=== PATIENT | male | born 1945 | race Caucasian/White ===

== ENCOUNTER 2016-09-14 18:03 | Inpatient (IN) | payer OTHER ==
[~2016-09-14] VITALS: Ht 177.8 cm; Wt 67.0 kg
[2016-09-14 19:07] LABS: BASO % 0.2 %; BASO ABS # 0.02 K/uL (0-0.2); COMPLETE YES; EOS % 0.5 %; HEMATOCRIT 37.5 % (42-52); IG% 0.3 %; LYMPH ABS # 1.04 K/uL (1.2-3.4); MEAN CELL VOLUME 91.9 fL (80-100); MEAN CORPUSCULAR HEMOGLOBIN 31.4 pg (25-34); MEAN CORPUSCULAR HGB CONC 34.1 g/dl (32-36); MEAN PLATELET VOLUME 8.3 fL (7.4-10.4); PLATELET COUNT 415 K/uL (130-400); RED BLOOD COUNT 4.08 M/uL (4.7-6.1); WHITE BLOOD COUNT 13.08 K/uL (4.8-10.8)
[2016-09-14 20:13] LABS: ALB/GLOB RATIO 0.8 (0.9-2); ALKALINE PHOSPHATASE 68 U/L (45-117); ALT/SGPT 18 U/L (12-78); BLOOD UREA NITROGEN 18 mg/dl (7-18); BUN/CREATININE RATIO 18.3 (10-20); CALCIUM 8.9 mg/dl (8.5-10.1); CARBON DIOXIDE 36 mmol/L (21-32); CHLORIDE 88 mmol/L (98-107); CREATININE 0.97 mg/dl (0.60-1.40); GLUCOSE 103 mg/dl (70-99); SODIUM 130 mmol/L (136-145)
--- NOTE | 2016-09-14 20:18 | DIAGNOSTIC IMAGING REPORT ---
CHEST 1 VW FRONT-NOT PORTABLE CLINICAL HISTORY: Back pain, leg numbness, trauma. COMPARISON STUDY: No previous studies for comparison. FINDINGS: The heart is borderline enlarged. There is no failure. There is no focal pulmonary consolidation. There are no pleural effusions. There is no pneumothorax.[ IMPRESSION: No active disease in the chest. Electronically signed by: Jaziel Monte M.D. 09/14/2016 8:16 PM Dictated Date/Time: 09/14/2016 8:16 PM
[2016-09-14] MEDS ORDERED: ACETAMINOPHEN 500 MG TAB PO STA (20:32)
--- NOTE | 2016-09-14 20:37 | DIAGNOSTIC IMAGING REPORT ---
CT LUMBAR SPINE WITHOUT CT DOSE: 1926.37 mGy.cm CLINICAL HISTORY: Back pain, leg weakness, urinary incontinence, history of trauma. TECHNIQUE: Helical images were acquired in transverse plane. Reformatted sagittal and coronal images were reviewed. CONTRAST: No contrast was administered COMPARISON STUDY: None. FINDINGS: L1-2 level: There is a mild circumferential disc bulge. There is no significant spinal or foraminal stenosis L2-3 level: There is a mild circumferential disc bulge. There is mild spinal stenosis. There is no significant foraminal narrowing L3-4 level: There is a mild circumferential disc bulge. There is mild spinal stenosis. There is no significant foraminal narrowing L4-5 level: There is a circumferential disc bulge. There is mild spinal stenosis. There is facet joint arthropathy. There is no significant foraminal narrowing. L5-S1 level: There is marked disc space narrowing. There are small posterior osteophytes. There is no significant spinal stenosis. There is left-sided hydronephrosis and hydroureter. The bladder is distended. There is a 4.2 cm infrarenal abdominal aortic aneurysm. There is a 2.5 cm left common iliac artery aneurysm. There is a superior endplate L1 deformity which is felt to be secondary to a Schmorl's node. IMPRESSION: 1. No acute fractures or traumatic subluxations 2. Multilevel disc bulges with multilevel mild spinal stenosis. 3. 4.2 cm infrarenal abdominal aortic aneurysm 4. Left-sided hydronephrosis and hydroureter 5. Distended urinary bladder 6. 2.5 cm left common iliac artery aneurysm Electronically signed by: Jaziel Monte M.D. 09/14/2016 8:35 PM Dictated Date/Time: 09/14/2016 8:31 PM
[2016-09-14] MEDS ORDERED: CALC-51 PO (20:41)
[2016-09-14] MEDS ORDERED: IBUP-1050 PO (20:41)
[2016-09-14] MEDS ORDERED: NAPR1TAB9 PO (20:41)
[2016-09-14] MEDS ORDERED: MAGN400T6 PO (20:41)
--- NOTE | 2016-09-14 20:49 | DIAGNOSTIC IMAGING REPORT ---
CT THORACIC SPINE WITHOUT CT DOSE: CLINICAL HISTORY: Back pain, urinary incontinence, leg weakness, history of trauma. TECHNIQUE: Helical images were acquired in the transverse plane. No intravenous contrast was administered. COMPARISON STUDY: None. FINDINGS: There is mild pulmonary septal thickening. There is area of presumed left apical peripheral scarring. There is mild left-sided hydronephrosis. There are erosive/destructive changes involving the T5-6 disc. There is bony fragmentation and loss of height involving the T5 and T6 vertebral bodies. There is retropulsion of calcific debris into the spinal canal with secondary spinal canal narrowing. There are bilateral paraspinal masses at this level. There are bilateral T6 pedicle fractures. Given history of trauma, the findings are likely secondary to posttraumatic instability although a discitis osteomyelitis could appear similar. There is a T7 compression fracture demonstrating 50% loss in height. No additional fractures are visualized. IMPRESSION: 1. T5 and T6 endplate irregularity with loss in height, bony fragmentation, bilateral T6 pedicle fractures, and associated bilateral paraspinal masses. There is also retropulsion of bony material into the spinal canal with secondary spinal canal compromise. Given history of trauma, the findings are likely secondary to posttraumatic instability with paraspinal hematomas. It should be noted that a discitis and osteomyelitis could appear similar, and clinical correlation in this regard will be necessary. 2. Subacute T7 compression fracture with 50% loss in height 3. Left-sided hydronephrosis Electronically signed by: Jaziel Monte M.D. 09/14/2016 8:48 PM Dictated Date/Time: 09/14/2016 8:37 PM
[2016-09-14 20:55] LABS: URINE APPEARANCE CLEAR (CLEAR); URINE BILIRUBIN NEG (NEG); URINE COLOR YELLOW; URINE NITRITE POS (NEG); URINE SPECIFIC GRAVITY 1.011 (1.000-1.030); UROBILINOGEN NEG (NEG); ZZUR CULT IF INDIC CLEAN CATCH YES
[2016-09-14 20:57] LABS: MANUAL MICROSCOPIC REQUIRED? NO; REVIEW REQ? NO
[2016-09-14 21:28] LABS: POTASSIUM 2.9 mmol/L (3.5-5.1)
[2016-09-14] MEDS ORDERED: DAPTOmycin IV 400 MG in SODIUM CHLORIDE 0.9% 50ML 50 ML IV STA (21:35)
[2016-09-14] MEDS ORDERED: PIPERACILLIN/TAZOBACTAM 3.375 GM/100ML D5W IV STA (21:35)
[2016-09-14] MEDS ORDERED: POTASSIUM CHLORIDE 10 MEQ TABCR PO STA (22:32)
[2016-09-14] MEDS ORDERED: MAGNESIUM OXIDE 400 MG TAB PO PRN (22:45)
[2016-09-14] MEDS ORDERED: ONDANSETRON INJ 2 MG/ML 2 ML VIAL IV PRN (22:45)
[2016-09-14] MEDS ORDERED: ACETAMINOPHEN 325 MG TAB PO PRN (22:45)
[2016-09-14] MEDS ORDERED: PIPERACILL/TAZOBAC CONSULT ACTIVE PRN (23:15)
[2016-09-14 23:40] VITALS: BP 190/89; PULSE 69; TEMP 37; O2SAT 97
--- NOTE | 2016-09-14 23:44 | EMERGENCY ROOM VISIT NOTE ---
History First contact with patient: 18:42 Chief Complaint: BACK PAIN Stated Complaint: BILATERAL LEG PARESTHESIA, THORACIC VERTEBRAL History of Present Illness The patient is a 71 year old male who presents to the Emergency Room with complaints of back pain and weakness in his legs. The patient states that he fell a few weeks ago and injured his back. He reports that he initially thought that he bruised his ribs. He states that the pain did not improve. Over the past few days he has noticed worsening of his symptoms. He has had weakness in his legs and difficulty walking. He reports some episodes of urinary incontinence. The patient states that he is otherwise healthy and does not take any medications daily. He does admit to daily marijuana use. He denies any chest pain, shortness of breath, abdominal pain, fevers or chills. He denies any urinary symptoms. Review of Systems A complete 10 point review of systems was reviewed with the patient with pertinent positives and negatives as per history of present illness. All else were negative. Past Medical/Surgical History Medical Problems: (1) Bilateral leg paresthesia (2) Thoracic vertebral fracture Social History Smoking Status: Former Smoker Current/Historical Medications Scheduled Calcium Carbonate-Vitamin D (Calcium), 1 TAB PO 2XWK Scheduled PRN Ibuprofen (Advil), 800 MG PO Q4 PRN for Pain Magnesium Oxide (Mag-Ox), 400 MG PO DAILY PRN for LEG CRAMPS Naproxen (Aleve), 220 MG PO Q4 PRN for Pain Allergies Coded Allergies: No Known Allergies (Unverified , 09/14/16) Physical Exam Vital Signs Date Time Temp Pulse Resp B/P (MAP) Pulse Ox O2 Delivery O2 Flow Rate FiO2 09/14/16 22:12 66 18 150/80 95 Room Air 09/14/16 21:11 68 18 165/104 99 Room Air 09/14/16 19:24 61 18 159/97 94 Room Air 09/14/16 19:07 64 09/14/16 18:18 36.9 73 18 167/92 93 Room Air Pain Rating (0-10): 0 Physical Exam VITALS: Vitals are noted on the nurse's note and reviewed by myself. Vital signs stable. GENERAL: This is a 71-year-old male, in no acute distress, nondiaphoretic, well- developed well-nourished. SKIN: The skin was without rashes. HEAD: Normocephalic atraumatic. NECK: Supple without nuchal rigidity. No tenderness of the cervical spine. HEART: Regular rate and rhythm without murmurs gallops or rubs. LUNGS: Clear to auscultation bilaterally without wheezes, rales or rhonchi. ABDOMEN: Soft, nontender to palpation. MUSCULOSKELETAL: There is mild tenderness over the midthoracic spine. No tenderness over the lumbar spine. Strength is 5/5 in bilateral lower extremity. Reflexes 2+ bilaterally. NEURO: Patient was alert and oriented to person place and time. Normal sensation to light and sharp touch. Medical Decision & Procedures ER Provider Diagnostic Interpretation: CHEST 1 VW FRONT-NOT PORTABLE FINDINGS: The heart is borderline enlarged. There is no failure. There is no focal pulmonary consolidation. There are no pleural effusions. There is no pneumothorax.[ IMPRESSION: No active disease in the chest. CT LUMBAR SPINE WITHOUT FINDINGS: L1-2 level: There is a mild circumferential disc bulge. There is no significant spinal or foraminal stenosis L2-3 level: There is a mild circumferential disc bulge. There is mild spinal stenosis. There is no significant foraminal narrowing L3-4 level: There is a mild circumferential disc bulge. There is mild spinal stenosis. There is no significant foraminal narrowing L4-5 level: There is a circumferential disc bulge. There is mild spinal stenosis. There is facet joint arthropathy. There is no significant foraminal narrowing. L5-S1 level: There is marked disc space narrowing. There are small posterior osteophytes. There is no significant spinal stenosis. There is left-sided hydronephrosis and hydroureter. The bladder is distended. There is a 4.2 cm infrarenal abdominal aortic aneurysm. There is a 2.5 cm left common iliac artery aneurysm. There is a superior endplate L1 deformity which is felt to be secondary to a Schmorl's node. IMPRESSION: 1. No acute fractures or traumatic subluxations 2. Multilevel disc bulges with multilevel mild spinal stenosis. 3. 4.2 cm infrarenal abdominal aortic aneurysm 4. Left-sided hydronephrosis and hydroureter 5. Distended urinary bladder 6. 2.5 cm left common iliac artery aneurysm CT THORACIC SPINE WITHOUT FINDINGS: There is mild pulmonary septal thickening. There is area of presumed left apical peripheral scarring. There is mild left-sided hydronephrosis. There are erosive/destructive changes involving the T5-6 disc. There is bony fragmentation and loss of height involving the T5 and T6 vertebral bodies. There is retropulsion of calcific debris into the spinal canal with secondary spinal canal narrowing. There are bilateral paraspinal masses at this level. There are bilateral T6 pedicle fractures. Given history of trauma, the findings are likely secondary to posttraumatic instability although a discitis osteomyelitis could appear similar. There is a T7 compression fracture demonstrating 50% loss in height. No additional fractures are visualized. IMPRESSION: 1. T5 and T6 endplate irregularity with loss in height, bony fragmentation, bilateral T6 pedicle fractures, and associated bilateral paraspinal masses. There is also retropulsion of bony material into the spinal canal with secondary spinal canal compromise. Given history of trauma, the findings are likely secondary to posttraumatic instability with paraspinal hematomas. It should be noted that a discitis and osteomyelitis could appear similar, and clinical correlation in this regard will be necessary. 2. Subacute T7 compression fracture with 50% loss in height 3. Left-sided hydronephrosis Laboratory Results Test 09/14/16 18:47 09/14/16 20:34 09/14/16 21:09 09/14/16 21:57 Total Bilirubin 0.7 mg/dl (0.2-1) Alanine Aminotransferase (ALT/SGPT) 18 U/L (12-78) Alkaline Phosphatase 68 U/L (45-117) Total Protein 7.9 gm/dl (6.4-8.2) Albumin 3.4 gm/dl (3.4-5.0) Globulin 4.5 gm/dl (2.5-4.0) Albumin/Globulin Ratio 0.8 (0.9-2) Chemistry Specimen Hemolysis Urine Color YELLOW Urine Appearance CLEAR (CLEAR) Urine pH 7.0 (4.5-7.5) Urine Specific Tripp 1.011 (1.000-1.030) Urine Protein NEG (NEG) Urine Glucose (UA) NEG (NEG) Urine Ketones NEG (NEG) Urine Occult Blood 2+ (NEG) Urine Nitrite POS (NEG) Urine Bilirubin NEG (NEG) Urine Urobilinogen NEG (NEG) Urine Leukocyte Esterase MODERATE (NEG) Urine WBC (Auto) 10-30 /hpf (0-5) Urine RBC (Auto) 10-30 /hpf (0-4) Urine Hyaline Casts (Auto) 1-5 /lpf (0-5) Urine Epithelial Cells (Auto) 5-10 /lpf (0-5) Urine Bacteria (Auto) 4+ (NEG) Aspartate Amino Transf (AST/SGOT) 17 U/L (15-37) Bedside Lactic Acid Venous 2.10 mmol/L (0.90-1.70) Medications Administered Medications (Trade) Dose Ordered Sig/Abraham Route Start Time Stop Time Status Last Admin Dose Admin Acetaminophen (Tylenol Tab) 1,000 mg NOW STAT PO 09/14/16 20:32 09/14/16 20:33 DC 09/14/16 21:10 1,000 MG Piperacillin Sod/ Tazobactam Sod (Zosyn Iv) 3.375 gm NOW STAT IV 09/14/16 21:35 09/14/16 21:39 DC 09/14/16 22:57 3.375 GM Daptomycin 400 mg/ Sodium Chloride 58 ml @ 100 mls/hr NOW STAT IV 09/14/16 21:35 09/14/16 22:09 DC 09/14/16 22:10 100 MLS/HR Potassium Chloride (Klor-Con M10) 40 meq NOW STAT PO 09/14/16 22:32 09/14/16 23:22 DC 09/15/16 01:44 40 MEQ ED Course The patient was evaluated as above. Labs were drawn and IV access was obtained. MRI of the thoracic and lumbar spine were initially ordered, but patient was not able to tolerate these. CT scans were performed and read by radiology as above. Patient was reevaluated and given 1 g Tylenol for pain. Case was discussed with Dr. Langley of orthopedic spine surgery. He recommended admitting the patient medically and he will consult tomorrow. Blood cultures were drawn. The patient was given initial doses of daptomycin and Zosyn. Case was discussed with the [facility] hospitalist, Dr. Boudreaux. They agreed to evaluate the patient for admission. Medical Decision Differential diagnosis includes fracture, contusion, spinal cord compression, discitis, cauda equina syndrome, among others. The patient is a 71-year-old male who presents today complaining of back pain after a fall several weeks ago. The patient comes in today due to increasing urinary incontinence and leg weakness. Labs did show an elevated white blood cell count of 13,000. Urinalysis was suggestive of infection, with nitrites, large leukocyte esterase, and 4+ bacteria. I initially ordered MRI of the thoracic and lumbar spine, but the patient was not able to tolerate these and CT scans were ordered instead. CT of the thoracic spine showed fractures of T5- T7 with associated retropulsion, canal compromise and what appears to be paraspinal hematomas. Orthopedic spine was consulted and agreed to evaluate the patient in the morning. He will be admitted medically. He was given Daptomycin and Zosyn for coverage of possible discitis/osteomyelitis. The patient's case was reviewed with Dr. Davison, ED attending physician, who agreed with my assessment and treatment plan. Impression Primary Impression: Thoracic vertebral fracture Additional Impression: Urinary tract infection Departure Information Referrals No Doctor, Assigned (PCP) Patient Instructions My [facility] Problem Qualifiers
[2016-09-15] MEDS: NSS + 20MEQ KCL 1000ML 1,000 ML IV SCH ×2 (00:48→09:27)
[2016-09-15 00:55] VITALS: BP 169/87
--- NOTE | 2016-09-15 01:09 | History and Physical ---
History & Physical Date & Time of Service: Sep 15, 2016 at 00:45 Chief Complaint: Bilateral Leg Paresthesia, Thoracic Vertebral Primary Care Physician: No Doctor, Assigned History of Present Illness Source: patient, family This is a 71 yo m that is presenting to us after a fall which occurred approx 4 weeks prior and has ongoing back pain. He states that four weeks ago he was walking into his house when it was dark and " I must have tripped on the stair. I remember falling forward and then waking up the next morning. I must have crawled into bed." He notes he had one beer prior to this incident. He states that his sister noticed some blood and a scratch on his notes so he believes that when he fell forward he must had hit his head but denies any N&V or headache since the fall. He states that the only thing he noticed was a dull mid back ache with an occasional "spasm" that would radiate down both legs. It was a constant 4/10 pain with the intermittent spasm. Worsened with specific movements such as bending and alleviating factors were not noted. The pain had been pretty consistent and unchanged over three weeks however over the past week he had increasing spasms and intensity of pain. He also started to notice numbness R>L in his bilat calves which was described as "semi numb". he denies any incontinence of stool or urine, sudden loss of motor function or balance concerns. 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 He was also found to be hyponatremic, hypokalemic and suffering from a UTI. He was given Zosyn and Dapto in the ED and blood cultures drawn. He does smoke marijuana on a near daily basis x 50 years. Past Medical/Surgical History Thoracic vertebrae fracture AAA Hydronephrosis Social History Smoking Status: Former Smoker Smokeless Tobacco Use: No Alcohol Use: socially Drug Use: marijuana Marital Status: single Housing status: lives alone Occupational Status: retired Allergies Coded Allergies: No Known Allergies (Unverified , 09/14/16) Home Medications Scheduled Calcium Carbonate-Vitamin D (Calcium), 1 TAB PO 2XWK Scheduled PRN Ibuprofen (Advil), 800 MG PO Q4 PRN for Pain Magnesium Oxide (Mag-Ox), 400 MG PO DAILY PRN for LEG CRAMPS Naproxen (Aleve), 220 MG PO Q4 PRN for Pain Review of Systems Constitutional: No fever Eyes: No worsening of vision ENT: No hearing loss Respiratory: No cough, No sputum, No wheezing, No shortness of breath, No dyspnea on exertion, No dyspnea at rest Cardiovascular: No chest pain Abdomen: No pain, No nausea, No vomiting, No diarrhea, No constipation Musculoskeletal: + problem reported (back pain as noted above), No joint pain, No muscle pain Genitourinary - Male: No hematuria, No dysuria, No urinary frequency, No urinary incontinence Neurologic: + numbness/tingling, No weakness, No balance problems Endocrine: No fatigue Integumentary: No rash Physical Exam Vital Signs Date Time Temp Pulse Resp B/P Pulse Ox O2 Delivery O2 Flow Rate FiO2 09/14/16 23:30 61 18 149/84 94 09/14/16 22:12 66 18 150/80 95 Room Air 09/14/16 21:11 68 18 165/104 99 Room Air 09/14/16 19:24 61 18 159/97 94 Room Air 09/14/16 19:07 64 09/14/16 18:18 36.9 73 18 167/92 93 Room Air General Appearance: no apparent distress Head: normocephalic, atraumatic Eyes: normal inspection ENT: normal ENT inspection Neck: supple Respiratory/Chest: normal breath sounds, no respiratory distress, no accessory muscle use Cardiovascular: regular rate, rhythm, no murmur Abdomen/GI: normal bowel sounds, non tender, soft Extremities/Musculoskelatal: normal inspection, no calf tenderness, no pedal edema, + pertinent finding (parasthesia R>L on inner aspect of bilat calves) Neurologic/Psych: alert, normal mood/affect, oriented x 3 Skin: normal color, warm/dry, no rash Lymphatic: no adenopathy Diagnostics Laboratory Results Results Past 24 Hours Test 09/14/16 18:47 09/14/16 20:34 09/14/16 21:09 09/14/16 21:57 Range/Units White Blood Count 13.08 4.8-10.8 K/uL Red Blood Count 4.08 4.7-6.1 M/uL Hemoglobin 12.8 14.0-18.0 g/dL Hematocrit 37.5 42-52 % Mean Corpuscular Volume 91.9 80-100 fL Mean Corpuscular Hemoglobin 31.4 25-34 pg Mean Corpuscular Hemoglobin Concent 34.1 32-36 g/dl Platelet Count 415 130-400 K/uL Mean Platelet Volume 8.3 7.4-10.4 fL Neutrophils (%) (Auto) 83.0 % Lymphocytes (%) (Auto) 8.0 % Monocytes (%) (Auto) 8.0 % Eosinophils (%) (Auto) 0.5 % Basophils (%) (Auto) 0.2 % Neutrophils # (Auto) 10.88 1.4-6.5 K/uL Lymphocytes # (Auto) 1.04 1.2-3.4 K/uL Monocytes # (Auto) 1.04 0.11-0.59 K/uL Eosinophils # (Auto) 0.06 0-0.5 K/uL Basophils # (Auto) 0.02 0-0.2 K/uL RDW Standard Deviation 42.1 36.4-46.3 fL RDW Coefficient of Variation 12.5 11.5-14.5 % Immature Granulocyte % (Auto) 0.3 % Immature Granulocyte # (Auto) 0.04 0.00-0.02 K/uL Sodium Level 130 136-145 mmol/L Potassium Level 2.9 3.5-5.1 mmol/L Chloride Level 88 98-107 mmol/L Carbon Dioxide Level 36 21-32 mmol/L Anion Gap 6.0 3-11 mmol/L Blood Urea Nitrogen 18 7-18 mg/dl Creatinine 0.97 0.60-1.40 mg/dl Est Creatinine Clear Calc Drug Dose 65.2 ml/min Estimated GFR () 90.0 Estimated GFR (Non- 77.7 BUN/Creatinine Ratio 18.3 10-20 Random Glucose 103 70-99 mg/dl Calcium Level 8.9 8.5-10.1 mg/dl Total Bilirubin 0.7 0.2-1 mg/dl Aspartate Amino Transf (AST/SGOT) 17 15-37 U/L Alanine Aminotransferase (ALT/SGPT) 18 12-78 U/L Alkaline Phosphatase 68 45-117 U/L Total Protein 7.9 6.4-8.2 gm/dl Albumin 3.4 3.4-5.0 gm/dl Globulin 4.5 2.5-4.0 gm/dl Albumin/Globulin Ratio 0.8 0.9-2 Chemistry Specimen Hemolysis Urine Color YELLOW Urine Appearance CLEAR CLEAR Urine pH 7.0 4.5-7.5 Urine Specific [place] 1.011 1.000-1.030 Urine Protein NEG NEG Urine Glucose (UA) NEG NEG Urine Ketones NEG NEG Urine Occult Blood 2+ NEG Urine Nitrite POS NEG Urine Bilirubin NEG NEG Urine Urobilinogen NEG NEG Urine Leukocyte Esterase MODERATE NEG Urine WBC (Auto) 10-30 0-5 /hpf Urine RBC (Auto) 10-30 0-4 /hpf Urine Hyaline Casts (Auto) 1-5 0-5 /lpf Urine Epithelial Cells (Auto) 5-10 0-5 /lpf Urine Bacteria (Auto) 4+ NEG Bedside Lactic Acid Venous 2.10 0.90-1.70 mmol/L Microbiology Results 09/14/16 Blood Culture, Received Pending 09/14/16 Blood Culture, Received Pending 09/14/16 Urine Culture, Received Pending Diagnostic Radiology CT THORACIC SPINE WITHOUT CT DOSE: CLINICAL HISTORY: Back pain, urinary incontinence, leg weakness, history of trauma. TECHNIQUE: Helical images were acquired in the transverse plane. No intravenous contrast was administered. COMPARISON STUDY: None. FINDINGS: There is mild pulmonary septal thickening. There is area of presumed left apical peripheral scarring. There is mild left-sided hydronephrosis. There are erosive/destructive changes involving the T5-6 disc. There is bony fragmentation and loss of height involving the T5 and T6 vertebral bodies. There is retropulsion of calcific debris into the spinal canal with secondary spinal canal narrowing. There are bilateral paraspinal masses at this level. There are bilateral T6 pedicle fractures. Given history of trauma, the findings are likely secondary to posttraumatic instability although a discitis osteomyelitis could appear similar. There is a T7 compression fracture demonstrating 50% loss in height. No additional fractures are visualized. IMPRESSION: 1. T5 and T6 endplate irregularity with loss in height, bony fragmentation, bilateral T6 pedicle fractures, and associated bilateral paraspinal masses. There is also retropulsion of bony material into the spinal canal with secondary spinal canal compromise. Given history of trauma, the findings are likely secondary to posttraumatic instability with paraspinal hematomas. It should be noted that a discitis and osteomyelitis could appear similar, and clinical correlation in this regard will be necessary. 2. Subacute T7 compression fracture with 50% loss in height 3. Left-sided hydronephrosis [~ rep ct add3]] CT LUMBAR SPINE WITHOUT CT DOSE: 1926.37 mGy.cm CLINICAL HISTORY: Back pain, leg weakness, urinary incontinence, history of trauma. TECHNIQUE: Helical images were acquired in transverse plane. Reformatted sagittal and coronal images were reviewed. CONTRAST: No contrast was administered COMPARISON STUDY: None. FINDINGS: L1-2 level: There is a mild circumferential disc bulge. There is no significant spinal or foraminal stenosis L2-3 level: There is a mild circumferential disc bulge. There is mild spinal stenosis. There is no significant foraminal narrowing L3-4 level: There is a mild circumferential disc bulge. There is mild spinal stenosis. There is no significant foraminal narrowing L4-5 level: There is a circumferential disc bulge. There is mild spinal stenosis. There is facet joint arthropathy. There is no significant foraminal narrowing. L5-S1 level: There is marked disc space narrowing. There are small posterior osteophytes. There is no significant spinal stenosis. There is left-sided hydronephrosis and hydroureter. The bladder is distended. There is a 4.2 cm infrarenal abdominal aortic aneurysm. There is a 2.5 cm left common iliac artery aneurysm. There is a superior endplate L1 deformity which is felt to be secondary to a Schmorl's node. IMPRESSION: 1. No acute fractures or traumatic subluxations 2. Multilevel disc bulges with multilevel mild spinal stenosis. 3. 4.2 cm infrarenal abdominal aortic aneurysm 4. Left-sided hydronephrosis and hydroureter 5. Distended urinary bladder 6. 2.5 cm left common iliac artery aneurysm [~ rep ct add3]] CHEST 1 VW FRONT-NOT PORTABLE CLINICAL HISTORY: Back pain, leg numbness, trauma. COMPARISON STUDY: No previous studies for comparison. FINDINGS: The heart is borderline enlarged. There is no failure. There is no focal pulmonary consolidation. There are no pleural effusions. There is no pneumothorax.[ IMPRESSION: No active disease in the chest. Impression Assessment and Plan This is a 71 yo m that is here because of worsening back pain and paraesthesias after a fall. He is found to have a T7 compression fracture of the vertebrae which may require surgery. Dr Langley is aware and will evaluate patient tomorrow. He is also found to have a AAA which will need evaluation. His hydronephrosis is concerning for obstructive pathology either from BPH which was not noted on the CT or UTI. T7 Vertebral Compression fracture; paraesthesias - patient is hemodynamically stable, med surg admission - Dr Langley will evaluation patient in am - pain control with Tylenol and morphine prn Hyponatremia -unsure if this is acute or chronic, Secondary to chronic marijuana use? - NSS with 20 kcl @ 100cc/h - Will reevaluate at 0200 and adjust rate accordingly Hypokalemia - Repleted in the ED - trend and replete accordingly Left hydronephrosis and bladder distention; obstructive pathology - BPH with UTI - white - Zosyn continued - consider addition of flomax Infrarenal AAA and Left common iliac A aneurysm - patient would benefit from an outpt follow up [facility] for AAA and outpt vascular surgery consult DVT Prophylaxis SCD in anticipation of surgery FULL CODE Level of Care Med/Surg Resuscitation Status FULL RESUSCITATION VTE Prophylaxis VTE Risk Assessment Done? Y/N: Yes Risk Level: Moderate Given or contraindicated: SCD's Social Service Consult None Apply Note Total Time: Critical Care 30 - 74 minutes Assessment and Plan Attending Addendum: I have physically seen and examined this patient, have directed their medical care, have supervised the medical residents activities, and agree with the H&P as noted above, with the following changes: NONE
[2016-09-15 03:16] LABS: CALCIUM 8.4 mg/dl (8.5-10.1)
[2016-09-15 03:26] LABS: BASO % 0.1 %; BASO ABS # 0.01 K/uL (0-0.2); COMPLETE YES; EOS % 0.2 %; HEMATOCRIT 36.5 % (42-52); IG% 0.3 %; LYMPH % 5.9 %; LYMPH ABS # 0.57 K/uL (1.2-3.4); MEAN CELL VOLUME 91.7 fL (80-100); MEAN CORPUSCULAR HEMOGLOBIN 31.7 pg (25-34); MEAN CORPUSCULAR HGB CONC 34.5 g/dl (32-36); MEAN PLATELET VOLUME 8.1 fL (7.4-10.4); MONO % 8.6 %; NEUT % 84.9 %; PLATELET COUNT 365 K/uL (130-400); RED BLOOD COUNT 3.98 M/uL (4.7-6.1); WHITE BLOOD COUNT 9.69 K/uL (4.8-10.8)
[2016-09-15 03:27] LABS: BUN/CREATININE RATIO 18.3 (10-20); CREATININE 0.9 mg/dl (0.60-1.40)
[2016-09-15] MEDS: PIPERACILL/TAZOBAC IV 3.375 GM in DEXTROSE 5% 100ML 100 ML IV SCH ×2 (04:23→12:00)
[2016-09-15] MEDS ORDERED: POTASSIUM CHLORIDE 10 MEQ TABCR PO STA (04:33)
[2016-09-15 07:20] VITALS: O2SAT 97; Ht 177.8 cm; Wt 67.0 kg
[2016-09-15 07:28] VITALS: BP 197/98; PULSE 70; TEMP 36.7; O2SAT 96
[2016-09-15 07:39] LABS: BUN/CREATININE RATIO 14.8 (10-20); CALCIUM 8.2 mg/dl (8.5-10.1); CREATININE 0.89 mg/dl (0.60-1.40); PHOSPHORUS 2.4 mg/dl (2.5-4.9)
[2016-09-15 08:09] VITALS: BP 180/97
[2016-09-15] MEDS: MoRPHine SULFATE 4 MG/ML 1 ML CARP\\VIAL IV PRN ×2 (09:25→13:16)
--- NOTE | 2016-09-15 11:30 | ORTHOPEDIC CONSULTATION ---
DATE OF CONSULTATION: 09/15/2016 DATE OF CONSULTATION: 09/15/2016. CHIEF COMPLAINT: Back pain followed closely by lower extremity difficulty. HISTORY OF PRESENT ILLNESS: Hamzah is 71, he fell 4 weeks ago, actually injured his head walking to his small cabin near his sister. He thought he tripped on the stairs, didn't think much of it. He did crawl into his bed. He had no significant problems prior. His sister did notice had he had some bleeding but did not need Emergency Room care at that time. Over the last 3-4 weeks he has gotten increasing pain with his spine, increasing lower extremity difficulty. He presented to the Emergency Room because he was not be improving, noticing numbness, tingling, weakness. He also had increasing urinary incontinence and urinary issues over and above his prior prostate issues. PAST MEDICAL HISTORY: Include hydronephrosis. No hypertension. SOCIAL HISTORY: Nonsmoker, nonalcohol user, marijuana user for 50 years. ALLERGIES: None known. MEDICATIONS: Calcium carbonate, vitamin D. REVIEW OF SYSTEMS: He denies any blurred vision, double vision, tinnitus or vertigo. Denies any chest pain, shortness of breath. No asthma, wheezing. No nausea, vomiting. He does have some urinary incontinence and the Gonzales catheter was placed. OBJECTIVE: VITAL SIGNS: 140/80 blood pressure, pulse of 68, respirations 18. GENERAL APPEARANCE: Stable. No terrible distress. HEAD, EYES, EARS, NOSE, AND THROAT: Pupils react to light and accommodation. Ear, nose and throat negative. NECK: Supple. LUNGS: Respiratory rate per H&P, normal breath sounds. CARDIAC: Normal rate rhythm, no murmur, no ectopy. ABDOMEN: Soft, nontender. EXTREMITIES: As far as his extremities are concerned they look normal in appearance. There is no significant edema. He has significant paresthesias, numbness and tingling varied in anatomic distribution. He has 3/5 strength with quads, 3/4 with dorsiflexion. Iliopsoas 3/5 too. He cannot even resist gravity. IMAGES: Reviewed in detail. He has a 3 column injury of the thoracic spine at T5 on T6, he has fracture down the anterior column. It is distracted and broken through the middle column with retropulsion of bone. He also has some tension on the posterior ligamentous structures at thoracic 4, 5 and 6. It is a true 3 column injury. IMPRESSION: Includes a delightful gentleman, 71, with a 3 column thoracic spine injury, retropulsion spinal canal, spinal canal narrowing, fracture of the bilateral pedicles at T6 with spinal cord compression. Cross sections also demonstrate spinal cord compression. DISPOSITION: I have ordered him a back brace for support and that is not going to be sufficient. I think he needs a higher level of acuity. He will need a fairly significant surgery with pedicle screws or hooks going up into the upper thoracic spine down into the lower thoracic spine. He actually may need some anterior work done as well coming from inside the rib cage. I feel that this is more than we can handle here at [facility]. We do not have the expertise as well. I recommend him being transferred to a higher level of care locally to be either [facility]. I recommend he stay at bed rest. I recommend a Gonzales catheter in place. If he gets down to [place] or [facility] with some sedation, he may be best off with an MRI scan as well.
[2016-09-15 15:18] VITALS: BP 139/90; PULSE 82; TEMP 36.9; O2SAT 96
--- NOTE | 2016-09-15 18:21 | Discharge Summary ---
Discharge Summary Date of Service Sep 15, 2016. (Graham Macedo MD) Discharge Summary Admission Date: September 14, 2016 at 22:37 Discharge Date: Sep 15, 2016 Discharge Disposition: Acute care facility Principal Diagnosis: Thoracic Vertebrae Fracture Consultations: Orthopedic Surgery (Graham Macedo MD) Discharge Exam patient comfortable in bed and in no acute distress Is complaining of lower leg cramps and numbness and tingling Does not want to lay flat in bed and wants to sit at the side of bed despite orders from nurse to stay in bed with brace Review of Systems: Constitutional: No fever, No chills, No sweats Respiratory: No cough, No sputum, No wheezing Cardiovascular: No chest pain, No edema, No palpitations Musculoskeletal: + problem reported (back pain) Genitourinary - Male: No dysuria, No urinary frequency, No urinary urgency, No urinary incontinence Neurologic: + numbness/tingling, No paralysis, No weakness Hematologic / Lymphatic: No abnormal bleeding/bruising, No clotting problems (Graham Macedo MD) 71 y/o M admitted overnight for having had mid back pain for 4 wks after a fall and now having weakness in legs leading to recurrent recent falls in a week. Noted to have fracture in thoracic spine on CT scan. Review of Systems: Constitutional: No fever Respiratory: No shortness of breath Cardiovascular: No chest pain Genitourinary - Male: No hematuria Neurologic: + weakness (both LE), + balance problems Physical Exam: General Appearance: no apparent distress Respiratory/Chest: lungs clear, no respiratory distress Cardiovascular: regular rate, rhythm Abdomen / GI: normal bowel sounds, non tender, soft Neurologic/Psychiatric: alert, oriented x 3, + pertinent finding (Both LE with weakness in proximal muscles. Able to plantar flex at ankle. Unable to stand. UE strength intact. ) Skin: warm/dry (Joie Brooks M.D.) Hospital Course Hamzah is 71, he fell 4 weeks ago, actually injured his head walking to his small cabin near his sister. He thought he tripped on the stairs, didn't think much of it. He did crawl into his bed. Hamzah is a 71 year old male that fell 4 weeks ago when he was walking to his cab. He crawled into his bed. He sister did not that he had some bleeding but did not bring him to the ED. Over the last several weeks he has had worsening back pain with increasing lower extremity cramping and numbness. In the ED he was also having worsening urinary incontinence. Imaging of his thoracic spine with CT showed a 3 column injury at T5-T6 down the anterior column. It is distracted and broken through the middle column with retropulsion of bone. He also has tension on the posterior ligamentous structures at thoracic 4,5 and 6. It was decided by the orthopedic team to transfer the patient to [place] for surgery that cannot be done at [facility]. Total Time Spent: Less than 30 minutes This includes examination of the patient, discharge planning, medication reconciliation, and communication with other providers. (Graham Macedo MD) I have reviewed the medical record and performed a history and physical examination of this patient today. I have discussed the case with Dr. Macedo. The above note reflects my findings, conclusions, and recommendations Thoracic spine fracture after a fall with LE weakness with urinary incontinence and left hydronephrosis - On staff spine surgery recommends tertiary care referral. Called [facility] and transferred patient to Dr. Melissa service. AAA and iliac artery aneurysm - Will need outpatient follow up after discharge from [facility]. Total Time Spent: Greater than 30 minutes (40) (Joie Brooks M.D.) Discharge Instructions Please refer to the electronic Patient Visit Report (Discharge Instructions) for additional information. (Graham Macedo MD) Additional Copies To Abraham Mackenzie M.D.
[2016-09-16] MEDS ORDERED: CALCIUM 600MG + VIT D 400 IU TAB PO SCH (09:00)
== END 2016-09-15 20:35 | disposition short-term general hospital (02) | DRG 52 ==
LOC: ENRESERVDT → ENRESERVTM → C.EDB 18:07 → C.MSN 22:37
PROVIDERS: ADMIT Hospitalist; ATTEND Family Medicine
DX: S34.102A Unspecified injury to L2 level of lumbar spinal cord, initial encounter (principal); S22.058A Other fracture of T5-T6 vertebra, initial encounter for closed fracture; N13.30 Unspecified hydronephrosis; N39.0 Urinary tract infection, site not specified; E87.1 Hypo-osmolality and hyponatremia; Z87.891 Personal history of nicotine dependence; F12.10 Cannabis abuse, uncomplicated; I71.4 Abdominal aortic aneurysm, without rupture; N40.1 Benign prostatic hyperplasia with lower urinary tract symptoms; N39.498 Other specified urinary incontinence; Y92.018 Other place in single-family (private) house as the place of occurrence of the external cause; W10.8XXA Fall (on) (from) other stairs and steps, initial encounter; Y93.01 Activity, walking, marching and hiking

== ENCOUNTER 2016-09-29 19:29 | Emergency (ER) | payer OTHER ==
[~2016-09-29] VITALS: Ht 177.8 cm; Wt 64.0 kg
[~2016-09-29 19:29] MED LIST: CALC-51 PO; IBUP-1050 PO; MAGN400T6 PO; NAPR1TAB9 PO
[2016-09-29 19:38] VITALS: TEMP 36.7; Ht 177.8 cm; Wt 64.0 kg
[2016-09-29] MEDS ORDERED: ACET325T96 PO (20:51)
[2016-09-29] MEDS ORDERED: ALTEPLASE, RECOMBINANT 1 MG/ML 2 ML VIAL IV STA ×2 (21:53)
--- NOTE | 2016-09-30 00:49 | EMERGENCY ROOM VISIT NOTE ---
History First contact with patient: 20:50 Chief Complaint: PICC LINE CLOTTED Stated Complaint: PIC R ARM CLOGGED, SENT BY [facility] History of Present Illness The patient is a 71 year old male who presents to the Emergency Room via private vehicle with complaints of "pick" unclotted, sent by [facility]". The patient is currently undergoing management at [facility] where he receives antibiotics through the PICC line in his right arm. This is a double-lumen PICC line. The patient states that he has been told the pick line has been difficult to provide medication through and drop blood through for the past 2 weeks. He states that today the staff was unable to utilize the catheter as it was occluded. He was sent here for management. He denies any fevers, chills, arm pain. Review of Systems A complete 6-point Review of Systems was discussed with the patient, with pertinent positives and negatives listed in the History of Present Illness. All remaining Review of Systems questions can be considered negative unless otherwise specified. Past Medical/Surgical History Medical Problems: (1) Bilateral leg paresthesia (2) Thoracic vertebral fracture Family History No pertinent family history at this time. Social History Smoking Status: Never Smoker Occupation Status: retired Current/Historical Medications Scheduled Calcium Carbonate-Vitamin D (Calcium), 1 TAB PO DAILY Scheduled PRN Acetaminophen Tab (Tylenol), 325 MG PO DAILY PRN for Pain Ibuprofen (Advil), 800 MG PO Q4 PRN for Pain Magnesium Oxide (Mag-Ox), 400 MG PO DAILY PRN for LEG CRAMPS Naproxen (Aleve), 220 MG PO Q4 PRN for Pain Allergies Coded Allergies: No Known Allergies (Unverified , 09/29/16) Physical Exam Vital Signs Date Time Temp Pulse Resp B/P (MAP) Pulse Ox O2 Delivery O2 Flow Rate FiO2 09/30/16 01:00 89 16 141/88 98 09/29/16 23:07 92 16 161/98 97 Room Air 09/29/16 19:38 36.7 107 18 150/89 95 Room Air Physical Exam VITAL SIGNS - Vital signs and nursing notes were reviewed. Patient is afebrile , hypertensive at 150/89, tachycardic and read 107 bpm, and is saturating well on room air 95%. GENERAL -71-year-old male appearing his stated age who is in no acute distress. Communicates well with provider and answers questions appropriately. SKIN - Without rashes. There is no erythema around the insertion site of the right catheter at the right distal brachial region. Minimal bruising noted at this region. Medical Decision & Procedures Medications Administered Medications (Trade) Dose Ordered Sig/Abraham Route Start Time Stop Time Status Last Admin Dose Admin Alteplase, Recombinant (Activase Cathflo) 2 mg ONE STAT IV 09/29/16 21:53 09/29/16 21:55 DC 09/29/16 22:13 2 MG Alteplase, Recombinant (Activase Cathflo) 2 mg ONE STAT IV 09/29/16 21:53 09/29/16 21:55 DC 09/29/16 22:15 2 MG Medical Decision Patient was seen and evaluated as above. He was evaluated by the PICC line team /IV team. It was recommended that we utilize Cathflo 2 for the double lumen catheter. This was ordered as per request, and was administered via the IV team. This was then allowed to sit within the catheter for a period of time, and was removed by the nurse and the line was flushed. Patient tolerated this well. The catheter is now functional. Patient is to be returned to [facility] where he may resume medical management. Impression Primary Impression: Occlusion of peripherally inserted central catheter (PICC) line Additional Impression: PIC line (peripherally inserted central catheter) flush Departure Information Dispostion Home / Self-Care Condition GOOD Referrals Abraham Mackenzie M.D. (PCP) Patient Instructions My [facility] Additional Instructions You were seen in the emergency Department for an occluded catheter. We have been able to successfully reopened the catheter. This is now may be used as directed. Please return to the emergency department with any new/concerning symptoms. Thank you for your time and have a good night. Problem Qualifiers
[2016-09-30 01:00] VITALS: BP 141/88; PULSE 89; O2SAT 98
== END 2016-09-30 01:00 | disposition home or self-care (01) ==
LOC: C.EDB 19:31 → C.EDC 09-30 01:00
DX: T82.868A Thrombosis due to vascular prosthetic devices, implants and grafts, initial encounter (principal); Y84.8 Other medical procedures as the cause of abnormal reaction of the patient, or of later complication, without mention of misadventure at the time of the procedure

== ENCOUNTER 2022-09-28 10:51 | Inpatient (IN) ==
[2022-09-28] MEDS: SODIUM CHLORIDE 0.9% 1000ML 1,000 ML IV SCH ×2 (11:00→11:53)
[2022-09-28] MEDS ORDERED: CEFEPIME 2,000 MG/20 ML VIAL IV STA (11:14)
[2022-09-28] MEDS ORDERED: LORazepam 2 MG/1 ML VIAL IV STA (11:45)
--- NOTE | 2022-09-28 11:53 | Emergency Department Note ---
Impression & Plan Sepsis, Hyperkalemia, Elevated INR, Anemia, Acute metabolic encephalopathy, Hyperammonemia, Rhabdomyolysis, Aspiration pneumonia, High anion gap metabolic acidosis, Acute renal failure, Hypothermia, Severe protein-calorie malnutrition, Acute urinary retention, Bilateral hydronephrosis, Medical non-compliance ED Provider Note NAME: CORNEL SHIELDS AGE: 77 SEX: M ARRIVES VIA: Ambulance INFORMANT: Patient ED PROVIDER(S): Ramírez Calderon MD CHIEF COMPLAINT: Altered mental status, hypothermic PLAN: Disposition: Admit MEDICAL DECISION MAKING: The patient is a 77-year-old gentleman with a past medical history of medical noncompliance, history of seizure disorder, noncompliant with medications, history of hypertension, noncompliant with medications who presents to the emergency department via EMS for altered mental status of unclear duration. The patient was recently seen by his [facility] primary care office several weeks ago and was diagnosed with a urinary tract infection. Per EMS report family was able to confirm his medications by opening unopened mail order medication packages consistent with his prior history of medical noncompliance. The [facility] department also did receive a call from [facility] ([place], ) that they received a call from the patient's ex- (Heather Shields, ) prior to calling 911 attempting to establish care with the hospice agency for their father. The patient arrives to emergency department critically ill-appearing, hypothermic with rectal temperature of 29.6, hypotensive in the 80s/50s with O2 saturation 97% on room air. The patient is awake with eyes open with purposeful movements will not follow commands in will only moan. He is moving all extremities equally. He appears pale, cachectic and unkempt. He has dry cracked mucous membranes and skin tenting. He has moderately distended abdomen/suprapubic region and upon White catheter placement by nursing 3200 cc of urine output was obtained. Sepsis treatment initiated with warmed IV fluid resuscitation with normal saline initially, bear hugger/warming blanket, empiric antibiotics with cefepime. EKG demonstrates sinus bradycardia with nonspecific intraventricular conduction block with rate of [address] elevation depression. Chest x-ray negative for acute cardiopulmonary process. WBC 3.9k nonspecific with lymphopenia of 0.11 but normal neutrophils and no left shift. H/H 6.2/18.6 decreased from January 04-. Platelets are nearly low at 73 K. Chemistry demonstrates high anion gap metabolic acidosis with anion gap of 30 and bicarbonate of 5 which correlates to a pH on VBG which was <7.0. Acute renal failure is noted with creatinine of 13 and BUN of 256. Potassium 7.7 which correlates to new conduction delay on EKG and so treatment with IV calcium gluconate x3 g and 10 units of regular insulin with 2 A of D50 were administered. The patient's lactic acid was 5.5 downtrending to 4.7 f ollowing IV fluid administration. LFTs with AST 61, nonspecific and LFTs otherwise unremarkable. INR was elevated at 1.7 and suspected to reflect failure to thrive/malnutrition and likely vitamin K deficiency. 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 CPK 1700, high- sensitivity troponin 176, nonspecific and lipase 4300 all consistent with multisystem organ failure in this critically ill patient. Procalcitonin 0.64. UA with WBCs but no bacteria but in the setting of recent antibiotics for UTI. Respiratory viral panel/bio fire was negative. CT of the head was negative for acute abnormalities. CT of the chest consistent with suspicion for aspiration pneumonia. CT of the abdomen pelvis demonstrates bilateral hy droureteronephrosis following bladder decompression with White catheter. Additional note is made of distended loops of small bowel which is most likely consistent with ileus and clinical context, possibly related to mass effect from distended bladder prior to white catheter placement. 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 As the patient's goals of care had yet to be fully confirmed with appropriate family the patient's resuscitation continued and no type and cross for PRBCs ordered to be warmed and administered given the patient's hypothermia and anemia with multisystem organ failure. Case was d/w Dr. Lazo, [facility] hospitalist who will evaluate the patient for admission. Of note, patient family ultimately did arrive to the bedside and discussed goals of care further with Dr. Lazo and so patient was confirmed to be DNR/DNI and to have limitations in his care preferring to focus on comfort though they did agree with blood transfusion. Further management per admitting team. Triage Nursing notes reviewed and agree them. Prior/outside medical records reviewed Vital Signs: reviewed Differential diagnosis: Infection, hypoglycemia, electrolyte abnormalities, overdose, toxicologic, cardiac sources, intracerebral event, neurologic, trauma, as well as other pathologies. ER treatment provided: See below. Diagnostics interpreted by me: ECG: Sinus bradycardia, first-degree AV block, 46 bpm, nonspecific intraventricular conduction block, no overt ST elevation or depression, QTc 516, QRS 178. Cardiac Monitoring: An order for continuous cardiac monitoring was placed and demonstrated sinus bradycardia, 46 bpm, nonspecific intraventricular conduction block. Laboratory studies: See below Imaging studies: See below Consultation(s): Case was d/w Dr. Lazo, [facility] hospitalist who will evaluate the patient for admission. HPI: The patient is a 77-year-old gentleman with a past medical history of m edical noncompliance, history of seizure disorder, noncompliant with medications, history of hypertension, noncompliant with medications who presents to the emergency department via EMS for altered mental status of unclear duration. The patient was recently seen by his [facility] primary care office several weeks ago and was diagnosed with a urinary tract infection. Per EMS report family was able to confirm his medications by opening unopened mail order medication packages consistent with his prior history of medical noncompliance. The emergency department also did receive a call from [facility] ([place], ) that they received a call from the patient's ex- (Heather Shields, ) prior to calling 911 attempting to establish care with the hospice agency for their father. ROS: See above HPI for pertinent positives & negatives. A total of 10 systems reviewed and were otherwise negative. VITALS:See Below PHYSICAL EXAMINATION: GENERAL: Awake, critically ill-appearing, cachectic HENT: Normocephalic, atraumatic. Oropharynx dry-cracked mucous membranes. EYES: Normal conjunctiva. Sclera non-icteric. NECK: Supple. No nuchal rigidity. FROM. No JVD. RESPIRATORY: Diminished at the bases and otherwise clear to auscultation. CARDIAC: Bradycardic rate, normal rhythm. Extremities cool and clammy with delayed capillary refill. Pulses are equal. ABDOMEN: Moderate lower abdominal/suprapubic distention. No rebound or guarding. No masses. MUSCULOSKELETAL: Chest examination reveals no tenderness. The back is symmetrical on inspection without obvious abnormality. There is no CVA tenderness to palpation. No joint edema. LOWER EXTREMITIES: Calves are equal size bilaterally and non-tender. No edema. No discoloration. NEURO: GCS 11: Awake, eyes open, moans, moves all extremities equally with purposeful movements but does not follow commands. SKIN: Moderate pallor. Skin tenting. Cool to touch. No rash or jaundice noted. ED COURSE: Critical Care: I have personally spent greater than 135 minutes of critical care time in the direct management of this patient. This includes bedside care, interpretation of diagnostic studies, and testing, discussion with consultants, patient, and family members, and other required patient management activities. This 135 haim brandon is in excess of all separately billable procedures. Ramírez Calderon MD Past Med/Surg History Medical History Hypertension Medical non-compliance Seizure disorder Social History Smoking Status: Former smoker Hx Alcohol Use: No Hx Substance Use: Yes Last Used Substance: Days (ago) Preferred Language: Macedonian Communication Ability: Impaired Director Learning Services Required: No Current Living Situation: Family Feels Safe at Home: Yes Safety Concerns: Feels Safe At This Time Assistive Devices: Oxygen - Continuous Allergies Allergies Allergy/AdvReac Type Severity Reaction Status Date / Time No Known Allergies Allergy Unverified 04/27/18 13:48 Home Meds Home Medications Medication Instructions Recorded Confirmed amlodipine 5 mg-olmesartan 20 mg 1 tab PO DAILY 09/28/22 09/28/22 tablet Results & Data (ED) Vital Signs Vital Signs - 24 hr 09/28/22 10:52 09/28/22 11:51 09/28/22 12:15 Temperature 29.6 C L Temperature Source Rectal Pulse Rate 39 L 57 L 63 Pulse Rate from SpO2 Sensor Respiratory Rate 12 Respiratory Effort / Characteristics Spontaneous Respiratory Pattern Regular Blood Pressure 87/56 L Blood Pressure Mean 66 Blood Pressure Position Semi-fowlers Pulse Oximetry 97 100 Oxygen Delivery Method Room Air Room Air Sepsis Recent Fever Within 48 Hours No Sepsis New/Unexplained Change in Mental Status Yes Sepsis Action Taken by Nursing Physician Notified 09/28/22 11:04 09/28/22 11:10 09/28/22 11:12 Temperature Temperature Source Pulse Rate 48 L 48 L 51 L Pulse Rate from SpO2 Sensor Respiratory Rate 20 17 17 Respiratory Effort / Characteristics Respiratory Pattern Blood Pressure Blood Pressure Mean Blood Pressure Position Pulse Oximetry Oxygen Delivery Method Sepsis Recent Fever Within 48 Hours Sepsis New/Unexplained Change in Mental Status Sepsis Action Taken by Nursing 09/28/22 11:12 09/28/22 11:20 09/28/22 11:27 Temperature Temperature Source Pulse Rate 47 L Pulse Rate from SpO2 Sensor Respiratory Rate 19 Respiratory Effort / Characteristics Respiratory Pattern Blood Pressure 87/57 L 132/58 L Blood Pressure Mean 66 82 Blood Pressure Position Pulse Oximetry 98 Oxygen Delivery Method Sepsis Recent Fever Within 48 Hours Sepsis New/Unexplained Change in Mental Status Sepsis Action Taken by Nursing 09/28/22 11:27 09/28/22 11:30 09/28/22 11:39 Temperature Temperature Source Pulse Rate 53 L 48 L Pulse Rate from SpO2 Sensor 49 L 48 L Respiratory Rate 18 17 Respiratory Effort / Characteristics Respiratory Pattern Blood Pressure 118/71 Blood Pressure Mean 93 Blood Pressure Position Pulse Oximetry 100 92 Oxygen Delivery Method Sepsis Recent Fever Within 48 Hours Sepsis New/Unexplained Change in Mental Status Sepsis Action Taken by Nursing 09/28/22 11:39 09/28/22 11:40 09/28/22 11:45 Temperature Temperature Source Pulse Rate 44 L 55 L Pulse Rate from SpO2 Sensor 51 L 54 L Respiratory Rate 20 18 Respiratory Effort / Characteristics Respiratory Pattern Blood Pressure 122/63 Blood Pressure Mean 86 Blood Pressure Position Pulse Oximetry 100 96 Oxygen Delivery Method Sepsis Recent Fever Within 48 Hours Sepsis New/Unexplained Change in Mental Status Sepsis Action Taken by Nursing 09/28/22 11:45 09/28/22 11:50 09/28/22 12:00 Temperature Temperature Source Pulse Rate 60 46 L Pulse Rate from SpO2 Sensor 54 L 52 L Respiratory Rate 17 18 Respiratory Effort / Characteristics Respiratory Pattern Blood Pressure 123/55 L Blood Pressure Mean 85 Blood Pressure Position Pulse Oximetry 99 99 Oxygen Delivery Method Sepsis Recent Fever Within 48 Hours Sepsis New/Unexplained Change in Mental Status Sepsis Action Taken by Nursing 09/28/22 12:00 09/28/22 12:10 09/28/22 12:15 Temperature Temperature Source Pulse Rate 55 L 70 Pulse Rate from SpO2 Sensor 55 L 58 L Respiratory Rate 20 18 Respiratory Effort / Characteristics Respiratory Pattern Blood Pressure 135/68 Blood Pressure Mean 85 Blood Pressure Position Pulse Oximetry 100 99 Oxygen Delivery Method Sepsis Recent Fever Within 48 Hours Sepsis New/Unexplained Change in Mental Status Sepsis Action Taken by Nursing 09/28/22 12:15 09/28/22 12:20 Temperature Temperature Source Pulse Rate 60 53 L Pulse Rate from SpO2 Sensor 52 L 55 L Respiratory Rate 21 23 Respiratory Effort / Characteristics Respiratory Pattern Blood Pressure Blood Pressure Mean Blood Pressure Position Pulse Oximetry 100 100 Oxygen Delivery Method Sepsis Recent Fever Within 48 Hours Sepsis New/Unexplained Change in Mental Status Sepsis Action Taken by Nursing Laboratory Data Attestation: I reviewed the patient's lab results. 09/28/22 11:20 09/28/22 11:20 Lab Results 09/28/22 09/28/22 09/28/22 Range/Units 11:20 11:20 11:20 WBC 4.43 L (4.8-10.8) K/ul RBC 1.91 L (4.70-6.10) M/uL Hgb 6.2 L* (14.0-18.0) g/dl Hct 18.6 L* (42.0-52.0) % MCV 97.4 (80.0-100.0) fL MCH 32.5 (25.0-34.0) pg MCHC 33.3 (32.0-36.0) g/dL RDW Std Deviation 46.8 H (36.4-46.3) fL RDW Coeff of Clarence 13.3 (11.5-14.5) % Plt Count 73 L (130-400) K/uL MPV 10.2 (9.4-12.4) fL Immature Gran % (Auto) 0.7 % Neut % (Auto) 93.2 % Lymph % (Auto) 2.5 % Curry % (Auto) 3.6 % Eos % (Auto) 0.0 % Baso % (Auto) 0.0 % Reticulocyte % (Auto) (0.5-2.0) % Neut # (Auto) 4.13 (1.40-6.50) K/uL Lymph # (Auto) 0.11 L (1.2-3.4) K/uL Curry # (Auto) 0.16 (0.11-0.59) K/uL Eos # (Auto) 0.00 (0-0.50) K/uL Baso # (Auto) 0.00 (0-0.2) K/uL Reticulocyte # (0.02-0.10) 10^6/uL Immature Gran # (Auto) 0.03 (0.01-0.20) K/uL Absolute Nucleated RBC 0.05 (0-0.12) K/uL Nucleated RBC % (auto) 1.1 % Polychromasia 1+ Echinocytes 1+ PT (9.0-12.0) Seconds INR (0.9-1.1) VBG pH (7.36-7.41) VBG pCO2 (38-50) mmHg VBG pO2 mmHg VBG HCO3 mmol/L VBG O2 Saturation % VBG Base Excess mEq/L Sodium 138 (136-145) mmol/L Potassium 7.7 H* (3.5-5.1) mmol/L Chloride 103 (98-107) mmol/L Carbon Dioxide 5 L* (21-32) mmol/L Anion Gap 30 H (3-11) BUN 256 H (6-23) mg/dl Creatinine 13.09 H* (0.6-1.4) mg/dl Est Cr Clr Drug Dosing Not Reportable Est GFR ( Amer) 3.7 ml/min Est GFR (Non-Af Amer) 3.2 ml/min BUN/Creatinine Ratio 19.8 (10-20) Glucose 76 (70-99(Fasting)) mg/dl POC Glucose (70-99) mg/dl Lactate 5.5 H* (0.4-2.0) mmol/L Calcium 8.1 L (8.6-10.3) mg/dl Phosphorus (2.5-4.9) mg/dl Magnesium 3.1 H (1.7-2.4) mg/dl Iron (35-175) mcg/dl TIBC (250-450) mcg/dl Unsaturated IBC (155-355) mcg/dl Transferrin % Sat (20-50) % Ferritin (8-388) ng/ml Total Bilirubin 0.4 (0.2-1.0) mg/dl Direct Bilirubin 0.1 (0-0.2) mg/dl AST 61 H (13-39) U/L ALT 19 (7-52) U/L Alkaline Phosphatase 41 (34-104) U/L Ammonia (18-72) umol/L Total Creatine Kinase 1708 H (30-223) U/L Troponin I High Sens 176.7 H* (0-20) pg/ml Total Protein 6.2 (6.0-8.3) gm/dl Albumin 3.8 (3.4-5.0) gm/dl Lipase 4392 H (11-82) U/L Vitamin B12 (180-914) pg/ml Folate (>5.38) ng/ml Procalcitonin (0-0.5) ng/ml TSH (0.300-4.500) uIu/ml Random Cortisol mcg/dl Urine Color Urine Appearance (Clear) Urine pH (4.5-7.5) Ur Specific [place] (1.000-1.030) Urine Protein (Negative) Urine Glucose (UA) (Negative) Urine Ketones (Negative) Urine Blood (Negative) Urine Nitrite (Negative) Urine Bilirubin (Negative) Urine Urobilinogen (Negative) Ur Leukocyte Esterase (Negative) Urine WBC (Auto) (0-5) /hpf Urine RBC (Auto) (0-4) /hpf U Hyaline Cast (Auto) (0-5) /lpf U Epithel Cells (Auto) (0-5) /lpf Urine Bacteria (Auto) (Negative) Urine Yeast Salicylates (3.0-30) mg/dl Urine Opiates Screen (Neg) Ur Methadone, Qual (Neg) Acetaminophen (10-30) ug/ml Urine Barbiturates (Neg) Ur Phencyclidine (PCP) (Neg) U Amphetamin/Meth Scrn (Neg) MDMA (Ecstasy) Screen (Neg) U Benzodiazepines Scrn (Neg) Ur Cocaine Metabolite (Neg) U Marijuana (THC) Screen (Neg) Ethyl Alcohol mg/dL (<10.0) mg/dl Adenovirus (PCR) (NotDetected) B. pertussis DNA (PCR) (NotDetected) B.parapertussis DNA PCR (NotDetected) C. pneumoniae DNA (PCR) (NotDetected) Coronavirus OC43 (PCR) (NotDetected) Coronavirus HKU1 (PCR) (NotDetected) Coronavirus 229E (PCR) (NotDetected) SARS-CoV-2 (PCR) (NotDetected) Coronavirus NL63 (PCR) (NotDetected) Human Metapneumovir PCR (NotDetected) Influenza Type A (PCR) (NotDetected) Influenza Type B (PCR) (NotDetected) M. pneumoniae (PCR) (NotDetected) Parainfluenza 1 (PCR) (NotDetected) Parainfluenza 2 (PCR) (NotDetected) Parainfluenza 3 (PCR) (NotDetected) Parainfluenza 4 (PCR) (NotDetected) RSV (PCR) (NotDetected) Entero/Rhino (PCR) (NotDetected) Blood Type Blood Type Recheck Antibody Screen Crossmatch 09/28/22 09/28/22 09/28/22 Range/Units 11:20 11:20 11:20 WBC (4.8-10.8) K/ul RBC (4.70-6.10) M/uL Hgb (14.0-18.0) g/dl Hct (42.0-52.0) % MCV (80.0-100.0) fL MCH (25.0-34.0) pg MCHC (32.0-36.0) g/dL RDW Std Deviation (36.4-46.3) fL RDW Coeff of Clarence (11.5-14.5) % Plt Count (130-400) K/uL MPV (9.4-12.4) fL Immature Gran % (Auto) % Neut % (Auto) % Lymph % (Auto) % Curry % (Auto) % Eos % (Auto) % Baso % (Auto) % Reticulocyte % (Auto) (0.5-2.0) % Neut # (Auto) (1.40-6.50) K/uL Lymph # (Auto) (1.2-3.4) K/uL Curry # (Auto) (0.11-0.59) K/uL Eos # (Auto) (0-0.50) K/uL Baso # (Auto) (0-0.2) K/uL Reticulocyte # (0.02-0.10) 10^6/uL Immature Gran # (Auto) (0.01-0.20) K/uL Absolute Nucleated RBC (0-0.12) K/uL Nucleated RBC % (auto) % Polychromasia Echinocytes PT 18.5 H (9.0-12.0) Seconds INR 1.7 H (0.9-1.1) VBG pH (7.36-7.41) VBG pCO2 (38-50) mmHg VBG pO2 mmHg VBG HCO3 mmol/L VBG O2 Saturation % VBG Base Excess mEq/L Sodium (136-145) mmol/L Potassium (3.5-5.1) mmol/L Chloride (98-107) mmol/L Carbon Dioxide (21-32) mmol/L Anion Gap (3-11) BUN (6-23) mg/dl Creatinine (0.6-1.4) mg/dl Est Cr Clr Drug Dosing Est GFR ( Amer) ml/min Est GFR (Non-Af Amer) ml/min BUN/Creatinine Ratio (10-20) Glucose (70-99(Fasting)) mg/dl POC Glucose (70-99) mg/dl Lactate (0.4-2.0) mmol/L Calcium (8.6-10.3) mg/dl Phosphorus (2.5-4.9) mg/dl Magnesium (1.7-2.4) mg/dl Iron (35-175) mcg/dl TIBC (250-450) mcg/dl Unsaturated IBC (155-355) mcg/dl Transferrin % Sat (20-50) % Ferritin (8-388) ng/ml Total Bilirubin (0.2-1.0) mg/dl Direct Bilirubin Cancelled (0-0.2) mg/dl AST (13-39) U/L ALT (7-52) U/L Alkaline Phosphatase (34-104) U/L Ammonia (18-72) umol/L Total Creatine Kinase (30-223) U/L Troponin I High Sens (0-20) pg/ml Total Protein (6.0-8.3) gm/dl Albumin (3.4-5.0) gm/dl Lipase Cancelled (11-82) U/L Vitamin B12 (180-914) pg/ml Folate (>5.38) ng/ml Procalcitonin 0.64 H (0-0.5) ng/ml TSH (0.300-4.500) uIu/ml Random Cortisol mcg/dl Urine Color Urine Appearance (Clear) Urine pH (4.5-7.5) Ur Specific [place] (1.000-1.030) Urine Protein (Negative) Urine Glucose (UA) (Negative) Urine Ketones (Negative) Urine Blood (Negative) Urine Nitrite (Negative) Urine Bilirubin (Negative) Urine Urobilinogen (Negative) Ur Leukocyte Esterase (Negative) Urine WBC (Auto) (0-5) /hpf Urine RBC (Auto) (0-4) /hpf U Hyaline Cast (Auto) (0-5) /lpf U Epithel Cells (Auto) (0-5) /lpf Urine Bacteria (Auto) (Negative) Urine Yeast Salicylates (3.0-30) mg/dl Urine Opiates Screen (Neg) Ur Methadone, Qual (Neg) Acetaminophen (10-30) ug/ml Urine Barbiturates (Neg) Ur Phencyclidine (PCP) (Neg) U Amphetamin/Meth Scrn (Neg) MDMA (Ecstasy) Screen (Neg) U Benzodiazepines Scrn (Neg) Ur Cocaine Metabolite (Neg) U Marijuana (THC) Screen (Neg) Ethyl Alcohol mg/dL (<10.0) mg/dl Adenovirus (PCR) (NotDetected) B. pertussis DNA (PCR) (NotDetected) B.parapertussis DNA PCR (NotDetected) C. pneumoniae DNA (PCR) (NotDetected) Coronavirus OC43 (PCR) (NotDetected) Coronavirus HKU1 (PCR) (NotDetected) Coronavirus 229E (PCR) (NotDetected) SARS-CoV-2 (PCR) (NotDetected) Coronavirus NL63 (PCR) (NotDetected) Human Metapneumovir PCR (NotDetected) Influenza Type A (PCR) (NotDetected) Influenza Type B (PCR) (NotDetected) M. pneumoniae (PCR) (NotDetected) Parainfluenza 1 (PCR) (NotDetected) Parainfluenza 2 (PCR) (NotDetected) Parainfluenza 3 (PCR) (NotDetected) Parainfluenza 4 (PCR) (NotDetected) RSV (PCR) (NotDetected) Entero/Rhino (PCR) (NotDetected) Blood Type Blood Type Recheck Antibody Screen Crossmatch 06/09/28/22 09/28/22 Range/Units 11:20 11:20 11:58 WBC (4.8-10.8) K/ul RBC (4.70-6.10) M/uL Hgb (14.0-18.0) g/dl Hct (42.0-52.0) % MCV (80.0-100.0) fL MCH (25.0-34.0) pg MCHC (32.0-36.0) g/dL RDW Std Deviation (36.4-46.3) fL RDW Coeff of Clarence (11.5-14.5) % Plt Count (130-400) K/uL MPV (9.4-12.4) fL Immature Gran % (Auto) % Neut % (Auto) % Lymph % (Auto) % Curry % (Auto) % Eos % (Auto) % Baso % (Auto) % Reticulocyte % (Auto) (0.5-2.0) % Neut # (Auto) (1.40-6.50) K/uL Lymph # (Auto) (1.2-3.4) K/uL Curry # (Auto) (0.11-0.59) K/uL Eos # (Auto) (0-0.50) K/uL Baso # (Auto) (0-0.2) K/uL Reticulocyte # (0.02-0.10) 10^6/uL Immature Gran # (Auto) (0.01-0.20) K/uL Absolute Nucleated RBC (0-0.12) K/uL Nucleated RBC % (auto) % Polychromasia Echinocytes PT (9.0-12.0) Seconds INR (0.9-1.1) VBG pH (7.36-7.41) VBG pCO2 (38-50) mmHg VBG pO2 mmHg VBG HCO3 mmol/L VBG O2 Saturation % VBG Base Excess mEq/L Sodium (136-145) mmol/L Potassium (3.5-5.1) mmol/L Chloride (98-107) mmol/L Carbon Dioxide (21-32) mmol/L Anion Gap (3-11) BUN (6-23) mg/dl Creatinine (0.6-1.4) mg/dl Est Cr Clr Drug Dosing Est GFR ( Amer) ml/min Est GFR (Non-Af Amer) ml/min BUN/Creatinine Ratio (10-20) Glucose (70-99(Fasting)) mg/dl POC Glucose (70-99) mg/dl Lactate (0.4-2.0) mmol/L Calcium (8.6-10.3) mg/dl Phosphorus (2.5-4.9) mg/dl Magnesium (1.7-2.4) mg/dl Iron (35-175) mcg/dl TIBC (250-450) mcg/dl Unsaturated IBC (155-355) mcg/dl Transferrin % Sat (20-50) % Ferritin (8-388) ng/ml Total Bilirubin (0.2-1.0) mg/dl Direct Bilirubin (0-0.2) mg/dl AST (13-39) U/L ALT (7-52) U/L Alkaline Phosphatase (34-104) U/L Ammonia (18-72) umol/L Total Creatine Kinase (30-223) U/L Troponin I High Sens (0-20) pg/ml Total Protein (6.0-8.3) gm/dl Albumin (3.4-5.0) gm/dl Lipase (11-82) U/L Vitamin B12 (180-914) pg/ml Folate (>5.38) ng/ml Procalcitonin (0-0.5) ng/ml TSH (0.300-4.500) uIu/ml Random Cortisol mcg/dl Urine Color Yellow Urine Appearance Clear (Clear) Urine pH 5.5 (4.5-7.5) Ur Specific [place] 1.011 (1.000-1.030) Urine Protein Trace H (Negative) Urine Glucose (UA) Negative (Negative) Urine Ketones Negative (Negative) Urine Blood 3+ H (Negative) Urine Nitrite Negative (Negative) Urine Bilirubin Negative (Negative) Urine Urobilinogen Negative (Negative) Ur Leukocyte Esterase 2+ H (Negative) Urine WBC (Auto) 10-30 H (0-5) /hpf Urine RBC (Auto) 0-4 (0-4) /hpf U Hyaline Cast (Auto) 1-5 (0-5) /lpf U Epithel Cells (Auto) 0-5 (0-5) /lpf Urine Bacteria (Auto) Negative (Negative) Urine Yeast Not Reportable Salicylates (3.0-30) mg/dl Urine Opiates Screen Neg (Neg) Ur Methadone, Qual Neg (Neg) Acetaminophen (10-30) ug/ml Urine Barbiturates Neg (Neg) Ur Phencyclidine (PCP) Neg (Neg) U Amphetamin/Meth Scrn Neg (Neg) MDMA (Ecstasy) Screen Neg (Neg) U Benzodiazepines Scrn Neg (Neg) Ur Cocaine Metabolite Neg (Neg) U Marijuana (THC) Screen Neg (Neg) Ethyl Alcohol mg/dL (<10.0) mg/dl Adenovirus (PCR) Not Detected (NotDetected) B. pertussis DNA (PCR) Not Detected (NotDetected) B.parapertussis DNA PCR Not Detected (NotDetected) C. pneumoniae DNA (PCR) Not Detected (NotDetected) Coronavirus OC43 (PCR) Not Detected (NotDetected) Coronavirus HKU1 (PCR) Not Detected (NotDetected) Coronavirus 229E (PCR) Not Detected (NotDetected) SARS-CoV-2 (PCR) Not Detected (NotDetected) Coronavirus NL63 (PCR) Not Detected (NotDetected) Human Metapneumovir PCR Not Detected (NotDetected) Influenza Type A (PCR) Not Detected (NotDetected) Influenza Type B (PCR) Not Detected (NotDetected) M. pneumoniae (PCR) Not Detected (NotDetected) Parainfluenza 1 (PCR) Not Detected (NotDetected) Parainfluenza 2 (PCR) Not Detected (NotDetected) Parainfluenza 3 (PCR) Not Detected (NotDetected) Parainfluenza 4 (PCR) Not Detected (NotDetected) RSV (PCR) Not Detected (NotDetected) Entero/Rhino (PCR) Not Detected (NotDetected) Blood Type Blood Type Recheck Antibody Screen Crossmatch 09/28/22 09/28/22 09/28/22 Range/Units 12:07 12:07 12:10 WBC (4.8-10.8) K/ul RBC (4.70-6.10) M/uL Hgb (14.0-18.0) g/dl Hct (42.0-52.0) % MCV (80.0-100.0) fL MCH (25.0-34.0) pg MCHC (32.0-36.0) g/dL RDW Std Deviation (36.4-46.3) fL RDW Coeff of Clarence (11.5-14.5) % Plt Count (130-400) K/uL MPV (9.4-12.4) fL Immature Gran % (Auto) % Neut % (Auto) % Lymph % (Auto) % Curry % (Auto) % Eos % (Auto) % Baso % (Auto) % Reticulocyte % (Auto) (0.5-2.0) % Neut # (Auto) (1.40-6.50) K/uL Lymph # (Auto) (1.2-3.4) K/uL Curry # (Auto) (0.11-0.59) K/uL Eos # (Auto) (0-0.50) K/uL Baso # (Auto) (0-0.2) K/uL Reticulocyte # (0.02-0.10) 10^6/uL Immature Gran # (Auto) (0.01-0.20) K/uL Absolute Nucleated RBC (0-0.12) K/uL Nucleated RBC % (auto) % Polychromasia Echinocytes PT (9.0-12.0) Seconds INR (0.9-1.1) VBG pH < 7.00 L (7.36-7.41) VBG pCO2 24 L (38-50) mmHg VBG pO2 40 mmHg VBG HCO3 mmol/L VBG O2 Saturation < 60.0 % VBG Base Excess mEq/L Sodium (136-145) mmol/L Potassium (3.5-5.1) mmol/L Chloride (98-107) mmol/L Carbon Dioxide (21-32) mmol/L Anion Gap (3-11) BUN (6-23) mg/dl Creatinine (0.6-1.4) mg/dl Est Cr Clr Drug Dosing Est GFR ( Amer) ml/min Est GFR (Non-Af Amer) ml/min BUN/Creatinine Ratio (10-20) Glucose (70-99(Fasting)) mg/dl POC Glucose (70-99) mg/dl Lactate (0.4-2.0) mmol/L Calcium (8.6-10.3) mg/dl Phosphorus (2.5-4.9) mg/dl Magnesium (1.7-2.4) mg/dl Iron (35-175) mcg/dl TIBC (250-450) mcg/dl Unsaturated IBC (155-355) mcg/dl Transferrin % Sat (20-50) % Ferritin (8-388) ng/ml Total Bilirubin (0.2-1.0) mg/dl Direct Bilirubin (0-0.2) mg/dl AST (13-39) U/L ALT (7-52) U/L Alkaline Phosphatase (34-104) U/L Ammonia 286.0 H (18-72) umol/L Total Creatine Kinase (30-223) U/L Troponin I High Sens (0-20) pg/ml Total Protein (6.0-8.3) gm/dl Albumin (3.4-5.0) gm/dl Lipase (11-82) U/L Vitamin B12 (180-914) pg/ml Folate (>5.38) ng/ml Procalcitonin (0-0.5) ng/ml TSH (0.300-4.500) uIu/ml Random Cortisol mcg/dl Urine Color Urine Appearance (Clear) Urine pH (4.5-7.5) Ur Specific [place] (1.000-1.030) Urine Protein (Negative) Urine Glucose (UA) (Negative) Urine Ketones (Negative) Urine Blood (Negative) Urine Nitrite (Negative) Urine Bilirubin (Negative) Urine Urobilinogen (Negative) Ur Leukocyte Esterase (Negative) Urine WBC (Auto) (0-5) /hpf Urine RBC (Auto) (0-4) /hpf U Hyaline Cast (Auto) (0-5) /lpf U Epithel Cells (Auto) (0-5) /lpf Urine Bacteria (Auto) (Negative) Urine Yeast Salicylates (3.0-30) mg/dl Urine Opiates Screen (Neg) Ur Methadone, Qual (Neg) Acetaminophen (10-30) ug/ml Urine Barbiturates (Neg) Ur Phencyclidine (PCP) (Neg) U Amphetamin/Meth Scrn (Neg) MDMA (Ecstasy) Screen (Neg) U Benzodiazepines Scrn (Neg) Ur Cocaine Metabolite (Neg) U Marijuana (THC) Screen (Neg) Ethyl Alcohol mg/dL (<10.0) mg/dl Adenovirus (PCR) (NotDetected) B. pertussis DNA (PCR) (NotDetected) B.parapertussis DNA PCR (NotDetected) C. pneumoniae DNA (PCR) (NotDetected) Coronavirus OC43 (PCR) (NotDetected) Coronavirus HKU1 (PCR) (NotDetected) Coronavirus 229E (PCR) (NotDetected) SARS-CoV-2 (PCR) (NotDetected) Coronavirus NL63 (PCR) (NotDetected) Human Metapneumovir PCR (NotDetected) Influenza Type A (PCR) (NotDetected) Influenza Type B (PCR) (NotDetected) M. pneumoniae (PCR) (NotDetected) Parainfluenza 1 (PCR) (NotDetected) Parainfluenza 2 (PCR) (NotDetected) Parainfluenza 3 (PCR) (NotDetected) Parainfluenza 4 (PCR) (NotDetected) RSV (PCR) (NotDetected) Entero/Rhino (PCR) (NotDetected) Blood Type A Positive Blood Type Recheck Antibody Screen NEGATIVE Crossmatch See Detail 09/28/22 09/28/22 09/28/22 Range/Units 13:04 13:15 13:42 WBC (4.8-10.8) K/ul RBC (4.70-6.10) M/uL Hgb (14.0-18.0) g/dl Hct (42.0-52.0) % MCV (80.0-100.0) fL MCH (25.0-34.0) pg MCHC (32.0-36.0) g/dL RDW Std Deviation (36.4-46.3) fL RDW Coeff of Clarence (11.5-14.5) % Plt Count (130-400) K/uL MPV (9.4-12.4) fL Immature Gran % (Auto) % Neut % (Auto) % Lymph % (Auto) % Curry % (Auto) % Eos % (Auto) % Baso % (Auto) % Reticulocyte % (Auto) (0.5-2.0) % Neut # (Auto) (1.40-6.50) K/uL Lymph # (Auto) (1.2-3.4) K/uL Curry # (Auto) (0.11-0.59) K/uL Eos # (Auto) (0-0.50) K/uL Baso # (Auto) (0-0.2) K/uL Reticulocyte # (0.02-0.10) 10^6/uL Immature Gran # (Auto) (0.01-0.20) K/uL Absolute Nucleated RBC (0-0.12) K/uL Nucleated RBC % (auto) % Polychromasia Echinocytes PT (9.0-12.0) Seconds INR (0.9-1.1) VBG pH (7.36-7.41) VBG pCO2 (38-50) mmHg VBG pO2 mmHg VBG HCO3 mmol/L VBG O2 Saturation % VBG Base Excess mEq/L Sodium (136-145) mmol/L Potassium (3.5-5.1) mmol/L Chloride (98-107) mmol/L Carbon Dioxide (21-32) mmol/L Anion Gap (3-11) BUN (6-23) mg/dl Creatinine (0.6-1.4) mg/dl Est Cr Clr Drug Dosing Est GFR ( Amer) ml/min Est GFR (Non-Af Amer) ml/min BUN/Creatinine Ratio (10-20) Glucose (70-99(Fasting)) mg/dl POC Glucose 379 H* (70-99) mg/dl Lactate 4.7 H* (0.4-2.0) mmol/L Calcium (8.6-10.3) mg/dl Phosphorus (2.5-4.9) mg/dl Magnesium (1.7-2.4) mg/dl Iron (35-175) mcg/dl TIBC (250-450) mcg/dl Unsaturated IBC (155-355) mcg/dl Transferrin % Sat (20-50) % Ferritin (8-388) ng/ml Total Bilirubin (0.2-1.0) mg/dl Direct Bilirubin (0-0.2) mg/dl AST (13-39) U/L ALT (7-52) U/L Alkaline Phosphatase (34-104) U/L Ammonia (18-72) umol/L Total Creatine Kinase (30-223) U/L Troponin I High Sens (0-20) pg/ml Total Protein (6.0-8.3) gm/dl Albumin (3.4-5.0) gm/dl Lipase (11-82) U/L Vitamin B12 (180-914) pg/ml Folate (>5.38) ng/ml Procalcitonin (0-0.5) ng/ml TSH (0.300-4.500) uIu/ml Random Cortisol mcg/dl Urine Color Urine Appearance (Clear) Urine pH (4.5-7.5) Ur Specific [place] (1.000-1.030) Urine Protein (Negative) Urine Glucose (UA) (Negative) Urine Ketones (Negative) Urine Blood (Negative) Urine Nitrite (Negative) Urine Bilirubin (Negative) Urine Urobilinogen (Negative) Ur Leukocyte Esterase (Negative) Urine WBC (Auto) (0-5) /hpf Urine RBC (Auto) (0-4) /hpf U Hyaline Cast (Auto) (0-5) /lpf U Epithel Cells (Auto) (0-5) /lpf Urine Bacteria (Auto) (Negative) Urine Yeast Salicylates (3.0-30) mg/dl Urine Opiates Screen (Neg) Ur Methadone, Qual (Neg) Acetaminophen (10-30) ug/ml Urine Barbiturates (Neg) Ur Phencyclidine (PCP) (Neg) U Amphetamin/Meth Scrn (Neg) MDMA (Ecstasy) Screen (Neg) U Benzodiazepines Scrn (Neg) Ur Cocaine Metabolite (Neg) U Marijuana (THC) Screen (Neg) Ethyl Alcohol mg/dL (<10.0) mg/dl Adenovirus (PCR) (NotDetected) B. pertussis DNA (PCR) (NotDetected) B.parapertussis DNA PCR (NotDetected) C. pneumoniae DNA (PCR) (NotDetected) Coronavirus OC43 (PCR) (NotDetected) Coronavirus HKU1 (PCR) (NotDetected) Coronavirus 229E (PCR) (NotDetected) SARS-CoV-2 (PCR) (NotDetected) Coronavirus NL63 (PCR) (NotDetected) Human Metapneumovir PCR (NotDetected) Influenza Type A (PCR) (NotDetected) Influenza Type B (PCR) (NotDetected) M. pneumoniae (PCR) (NotDetected) Parainfluenza 1 (PCR) (NotDetected) Parainfluenza 2 (PCR) (NotDetected) Parainfluenza 3 (PCR) (NotDetected) Parainfluenza 4 (PCR) (NotDetected) RSV (PCR) (NotDetected) Entero/Rhino (PCR) (NotDetected) Blood Type Blood Type Recheck A Positive Antibody Screen Crossmatch 09/28/22 09/28/22 09/28/22 Range/Units 14:33 14:33 14:33 WBC 3.90 L (4.8-10.8) K/ul RBC 1.70 L (4.70-6.10) M/uL Hgb 5.4 L* (14.0-18.0) g/dl Hct 16.1 L* (42.0-52.0) % MCV 94.7 (80.0-100.0) fL MCH 31.8 (25.0-34.0) pg MCHC 33.5 (32.0-36.0) g/dL RDW Std Deviation 46.0 (36.4-46.3) fL RDW Coeff of Clarence 13.3 (11.5-14.5) % Plt Count 52 L (130-400) K/uL MPV 11.3 (9.4-12.4) fL Immature Gran % (Auto) % Neut % (Auto) % Lymph % (Auto) % Curry % (Auto) % Eos % (Auto) % Baso % (Auto) % Reticulocyte % (Auto) 2.3 H (0.5-2.0) % Neut # (Auto) (1.40-6.50) K/uL Lymph # (Auto) (1.2-3.4) K/uL Curry # (Auto) (0.11-0.59) K/uL Eos # (Auto) (0-0.50) K/uL Baso # (Auto) (0-0.2) K/uL Reticulocyte # 0.04 (0.02-0.10) 10^6/uL Immature Gran # (Auto) (0.01-0.20) K/uL Absolute Nucleated RBC 0.06 (0-0.12) K/uL Nucleated RBC % (auto) 1.5 % Polychromasia Echinocytes PT (9.0-12.0) Seconds INR (0.9-1.1) VBG pH (7.36-7.41) VBG pCO2 (38-50) mmHg VBG pO2 mmHg VBG HCO3 mmol/L VBG O2 Saturation % VBG Base Excess mEq/L Sodium 135 L (136-145) mmol/L Potassium 6.9 H* (3.5-5.1) mmol/L Chloride 105 (98-107) mmol/L Carbon Dioxide 4 L* (21-32) mmol/L Anion Gap 26 H (3-11) BUN 254 H (6-23) mg/dl Creatinine 12.12 H* D (0.6-1.4) mg/dl Est Cr Clr Drug Dosing Not Reportable Est GFR ( Amer) 4.1 ml/min Est GFR (Non-Af Amer) 3.5 ml/min BUN/Creatinine Ratio 21.0 H (10-20) Glucose 280 H (70-99(Fasting)) mg/dl POC Glucose (70-99) mg/dl Lactate (0.4-2.0) mmol/L Calcium 8.2 L (8.6-10.3) mg/dl Phosphorus 16.7 H (2.5-4.9) mg/dl Magnesium (1.7-2.4) mg/dl Iron 99 (35-175) mcg/dl TIBC 232 L (250-450) mcg/dl Unsaturated IBC 133 L (155-355) mcg/dl Transferrin % Sat 43 (20-50) % Ferritin 377.1 (8-388) ng/ml Total Bilirubin (0.2-1.0) mg/dl Direct Bilirubin (0-0.2) mg/dl AST (13-39) U/L ALT (7-52) U/L Alkaline Phosphatase (34-104) U/L Ammonia (18-72) umol/L Total Creatine Kinase (30-223) U/L Troponin I High Sens 195.8 H* (0-20) pg/ml Total Protein (6.0-8.3) gm/dl Albumin (3.4-5.0) gm/dl Lipase (11-82) U/L Vitamin B12 568 (180-914) pg/ml Folate 19.60 (>5.38) ng/ml Procalcitonin (0-0.5) ng/ml TSH (0.300-4.500) uIu/ml Random Cortisol mcg/dl Urine Color Urine Appearance (Clear) Urine pH (4.5-7.5) Ur Specific [place] (1.000-1.030) Urine Protein (Negative) Urine Glucose (UA) (Negative) Urine Ketones (Negative) Urine Blood (Negative) Urine Nitrite (Negative) Urine Bilirubin (Negative) Urine Urobilinogen (Negative) Ur Leukocyte Esterase (Negative) Urine WBC (Auto) (0-5) /hpf Urine RBC (Auto) (0-4) /hpf U Hyaline Cast (Auto) (0-5) /lpf U Epithel Cells (Auto) (0-5) /lpf Urine Bacteria (Auto) (Negative) Urine Yeast Salicylates (3.0-30) mg/dl Urine Opiates Screen (Neg) Ur Methadone, Qual (Neg) Acetaminophen (10-30) ug/ml Urine Barbiturates (Neg) Ur Phencyclidine (PCP) (Neg) U Amphetamin/Meth Scrn (Neg) MDMA (Ecstasy) Screen (Neg) U Benzodiazepines Scrn (Neg) Ur Cocaine Metabolite (Neg) U Marijuana (THC) Screen (Neg) Ethyl Alcohol mg/dL (<10.0) mg/dl Adenovirus (PCR) (NotDetected) B. pertussis DNA (PCR) (NotDetected) B.parapertussis DNA PCR (NotDetected) C. pneumoniae DNA (PCR) (NotDetected) Coronavirus OC43 (PCR) (NotDetected) Coronavirus HKU1 (PCR) (NotDetected) Coronavirus 229E (PCR) (NotDetected) SARS-CoV-2 (PCR) (NotDetected) Coronavirus NL63 (PCR) (NotDetected) Human Metapneumovir PCR (NotDetected) Influenza Type A (PCR) (NotDetected) Influenza Type B (PCR) (NotDetected) M. pneumoniae (PCR) (NotDetected) Parainfluenza 1 (PCR) (NotDetected) Parainfluenza 2 (PCR) (NotDetected) Parainfluenza 3 (PCR) (NotDetected) Parainfluenza 4 (PCR) (NotDetected) RSV (PCR) (NotDetected) Entero/Rhino (PCR) (NotDetected) Blood Type Blood Type Recheck Antibody Screen Crossmatch 09/28/22 09/28/22 09/28/22 Range/Units 14:33 14:33 14:33 WBC (4.8-10.8) K/ul RBC (4.70-6.10) M/uL Hgb (14.0-18.0) g/dl Hct (42.0-52.0) % MCV (80.0-100.0) fL MCH (25.0-34.0) pg MCHC (32.0-36.0) g/dL RDW Std Deviation (36.4-46.3) fL RDW Coeff of Clarence (11.5-14.5) % Plt Count (130-400) K/uL MPV (9.4-12.4) fL Immature Gran % (Auto) % Neut % (Auto) % Lymph % (Auto) % [place] % (Auto) % Eos % (Auto) % Baso % (Auto) % Reticulocyte % (Auto) (0.5-2.0) % Neut # (Auto) (1.40-6.50) K/uL Lymph # (Auto) (1.2-3.4) K/uL Curry # (Auto) (0.11-0.59) K/uL Eos # (Auto) (0-0.50) K/uL Baso # (Auto) (0-0.2) K/uL Reticulocyte # (0.02-0.10) 10^6/uL Immature Gran # (Auto) (0.01-0.20) K/uL Absolute Nucleated RBC (0-0.12) K/uL Nucleated RBC % (auto) % Polychromasia Echinocytes PT (9.0-12.0) Seconds INR (0.9-1.1) VBG pH (7.36-7.41) VBG pCO2 (38-50) mmHg VBG pO2 mmHg VBG HCO3 mmol/L VBG O2 Saturation % VBG Base Excess mEq/L Sodium (136-145) mmol/L Potassium (3.5-5.1) mmol/L Chloride (98-107) mmol/L Carbon Dioxide (21-32) mmol/L Anion Gap (3-11) BUN (6-23) mg/dl Creatinine (0.6-1.4) mg/dl Est Cr Clr Drug Dosing Est GFR ( Amer) ml/min Est GFR (Non-Af Amer) ml/min BUN/Creatinine Ratio (10-20) Glucose (70-99(Fasting)) mg/dl POC Glucose (70-99) mg/dl Lactate (0.4-2.0) mmol/L Calcium (8.6-10.3) mg/dl Phosphorus (2.5-4.9) mg/dl Magnesium (1.7-2.4) mg/dl Iron (35-175) mcg/dl TIBC (250-450) mcg/dl Unsaturated IBC (155-355) mcg/dl Transferrin % Sat (20-50) % Ferritin (8-388) ng/ml Total Bilirubin (0.2-1.0) mg/dl Direct Bilirubin (0-0.2) mg/dl AST (13-39) U/L ALT (7-52) U/L Alkaline Phosphatase (34-104) U/L Ammonia (18-72) umol/L Total Creatine Kinase (30-223) U/L Troponin I High Sens (0-20) pg/ml Total Protein (6.0-8.3) gm/dl Albumin (3.4-5.0) gm/dl Lipase (11-82) U/L Vitamin B12 (180-914) pg/ml Folate (>5.38) ng/ml Procalcitonin (0-0.5) ng/ml TSH 3.272 (0.300-4.500) uIu/ml Random Cortisol > 60.00 mcg/dl Urine Color Urine Appearance (Clear) Urine pH (4.5-7.5) Ur Specific [place] (1.000-1.030) Urine Protein (Negative) Urine Glucose (UA) (Negative) Urine Ketones (Negative) Urine Blood (Negative) Urine Nitrite (Negative) Urine Bilirubin (Negative) Urine Urobilinogen (Negative) Ur Leukocyte Esterase (Negative) Urine WBC (Auto) (0-5) /hpf Urine RBC (Auto) (0-4) /hpf U Hyaline Cast (Auto) (0-5) /lpf U Epithel Cells (Auto) (0-5) /lpf Urine Bacteria (Auto) (Negative) Urine Yeast Salicylates < 3.0 L (3.0-30) mg/dl Urine Opiates Screen (Neg) Ur Methadone, Qual (Neg) Acetaminophen < 3 L (10-30) ug/ml Urine Barbiturates (Neg) Ur Phencyclidine (PCP) (Neg) U Amphetamin/Meth Scrn (Neg) MDMA (Ecstasy) Screen (Neg) U Benzodiazepines Scrn (Neg) Ur Cocaine Metabolite (Neg) U Marijuana (THC) Screen (Neg) Ethyl Alcohol mg/dL (<10.0) mg/dl Adenovirus (PCR) (NotDetected) B. pertussis DNA (PCR) (NotDetected) B.parapertussis DNA PCR (NotDetected) C. pneumoniae DNA (PCR) (NotDetected) Coronavirus OC43 (PCR) (NotDetected) Coronavirus HKU1 (PCR) (NotDetected) Coronavirus 229E (PCR) (NotDetected) SARS-CoV-2 (PCR) (NotDetected) Coronavirus NL63 (PCR) (NotDetected) Human Metapneumovir PCR (NotDetected) Influenza Type A (PCR) (NotDetected) Influenza Type B (PCR) (NotDetected) M. pneumoniae (PCR) (NotDetected) Parainfluenza 1 (PCR) (NotDetected) Parainfluenza 2 (PCR) (NotDetected) Parainfluenza 3 (PCR) (NotDetected) Parainfluenza 4 (PCR) (NotDetected) RSV (PCR) (NotDetected) Entero/Rhino (PCR) (NotDetected) Blood Type Blood Type Recheck Antibody Screen Crossmatch 09/28/22 Range/Units 14:33 WBC (4.8-10.8) K/ul RBC (4.70-6.10) M/uL Hgb (14.0-18.0) g/dl Hct (42.0-52.0) % MCV (80.0-100.0) fL MCH (25.0-34.0) pg MCHC (32.0-36.0) g/dL RDW Std Deviation (36.4-46.3) fL RDW Coeff of Clarence (11.5-14.5) % Plt Count (130-400) K/uL MPV (9.4-12.4) fL Immature Gran % (Auto) % Neut % (Auto) % Lymph % (Auto) % [place] % (Auto) % Eos % (Auto) % Baso % (Auto) % Reticulocyte % (Auto) (0.5-2.0) % Neut # (Auto) (1.40-6.50) K/uL Lymph # (Auto) (1.2-3.4) K/uL [place] # (Auto) (0.11-0.59) K/uL Eos # (Auto) (0-0.50) K/uL Baso # (Auto) (0-0.2) K/uL Reticulocyte # (0.02-0.10) 10^6/uL Immature Gran # (Auto) (0.01-0.20) K/uL Absolute Nucleated RBC (0-0.12) K/uL Nucleated RBC % (auto) % Polychromasia Echinocytes PT (9.0-12.0) Seconds INR (0.9-1.1) VBG pH (7.36-7.41) VBG pCO2 (38-50) mmHg VBG pO2 mmHg VBG HCO3 mmol/L VBG O2 Saturation % VBG Base Excess mEq/L Sodium (136-145) mmol/L Potassium (3.5-5.1) mmol/L Chloride (98-107) mmol/L Carbon Dioxide (21-32) mmol/L Anion Gap (3-11) BUN (6-23) mg/dl Creatinine (0.6-1.4) mg/dl Est Cr Clr Drug Dosing Est GFR ( Amer) ml/min Est GFR (Non-Af Amer) ml/min BUN/Creatinine Ratio (10-20) Glucose (70-99(Fasting)) mg/dl POC Glucose (70-99) mg/dl Lactate (0.4-2.0) mmol/L Calcium (8.6-10.3) mg/dl Phosphorus (2.5-4.9) mg/dl Magnesium (1.7-2.4) mg/dl Iron (35-175) mcg/dl TIBC (250-450) mcg/dl Unsaturated IBC (155-355) mcg/dl Transferrin % Sat (20-50) % Ferritin (8-388) ng/ml Total Bilirubin (0.2-1.0) mg/dl Direct Bilirubin (0-0.2) mg/dl AST (13-39) U/L ALT (7-52) U/L Alkaline Phosphatase (34-104) U/L Ammonia (18-72) umol/L Total Creatine Kinase (30-223) U/L Troponin I High Sens (0-20) pg/ml Total Protein (6.0-8.3) gm/dl Albumin (3.4-5.0) gm/dl Lipase (11-82) U/L Vitamin B12 (180-914) pg/ml Folate (>5.38) ng/ml Procalcitonin (0-0.5) ng/ml TSH (0.300-4.500) uIu/ml Random Cortisol mcg/dl Urine Color Urine Appearance (Clear) Urine pH (4.5-7.5) Ur Specific [place] (1.000-1.030) Urine Protein (Negative) Urine Glucose (UA) (Negative) Urine Ketones (Negative) Urine Blood (Negative) Urine Nitrite (Negative) Urine Bilirubin (Negative) Urine Urobilinogen (Negative) Ur Leukocyte Esterase (Negative) Urine WBC (Auto) (0-5) /hpf Urine RBC (Auto) (0-4) /hpf U Hyaline Cast (Auto) (0-5) /lpf U Epithel Cells (Auto) (0-5) /lpf Urine Bacteria (Auto) (Negative) Urine Yeast Salicylates (3.0-30) mg/dl Urine Opiates Screen (Neg) Ur Methadone, Qual (Neg) Acetaminophen (10-30) ug/ml Urine Barbiturates (Neg) Ur Phencyclidine (PCP) (Neg) U Amphetamin/Meth Scrn (Neg) MDMA (Ecstasy) Screen (Neg) U Benzodiazepines Scrn (Neg) Ur Cocaine Metabolite (Neg) U Marijuana (THC) Screen (Neg) Ethyl Alcohol mg/dL < 10.0 (<10.0) mg/dl Adenovirus (PCR) (NotDetected) B. pertussis DNA (PCR) (NotDetected) B.parapertussis DNA PCR (NotDetected) C. pneumoniae DNA (PCR) (NotDetected) Coronavirus OC43 (PCR) (NotDetected) Coronavirus HKU1 (PCR) (NotDetected) Coronavirus 229E (PCR) (NotDetected) SARS-CoV-2 (PCR) (NotDetected) Coronavirus NL63 (PCR) (NotDetected) Human Metapneumovir PCR (NotDetected) Influenza Type A (PCR) (NotDetected) Influenza Type B (PCR) (NotDetected) M. pneumoniae (PCR) (NotDetected) Parainfluenza 1 (PCR) (NotDetected) Parainfluenza 2 (PCR) (NotDetected) Parainfluenza 3 (PCR) (NotDetected) Parainfluenza 4 (PCR) (NotDetected) RSV (PCR) (NotDetected) Entero/Rhino (PCR) (NotDetected) Blood Type Blood Type Recheck Antibody Screen Crossmatch Administered Medications Sodium Bicarbonate 150 meq/ (Dextrose) 1,150 mls @ 80 mls/hr IV .[id number] [facility] Stop: 10/28/22 14:44 Last Admin: 09/28/22 16:01 Dose: 80 mls/hr Documented By: LAVON Piperacillin Sod/Tazobactam (Sod 4.5 gm/ Dextrose) 120 mls @ 30 mls/hr IV Q12H [facility]; Protocol Stop: 10/05/22 15:52 Last Admin: 09/28/22 16:31 Dose: 30 mls/hr Documented By: LAVON Discontinued Medications Dextrose (Dextrose 50% 50 Ml Syringe) 100 ml IV NOW ONE Stop: 09/28/22 12:46 Last Admin: 09/28/22 13:16 Dose: 100 ml Documented By: MERCED Sodium Chloride (Nss 1000ml) 1,000 mls @ 999 mls/hr IV .[id number] [facility] Stop: 09/28/22 13:15 Last Infusion: 09/28/22 14:28 Dose: 0 mls/hr Documented By: Admin: 09/28/22 11:53 Dose: 999 mls/hr Documented By: Infusion: 09/28/22 11:53 Dose: 999 mls/hr Documented By: Admin: 09/28/22 11:00 Dose: 999 mls/hr Documented By: DEEPALI Cefepime HCl (Maxipime) 2,000 mg in 20 mls @ 5 mls/min IV NOW STA; Protocol Stop: 09/28/22 11:17 Last Admin: 09/28/22 11:52 Dose: 5 mls/min Documented By: MERCED Calcium Gluconate () 1,000 mg in 60 mls @ 240 mls/hr IV Q15M [facility] Stop: 09/28/22 13:29 Last Infusion: 09/28/22 14:50 Dose: 0 mls/hr Documented By: Admin: 09/28/22 14:29 Dose: 240 mls/hr Documented By: Infusion: 09/28/22 14:27 Dose: 0 mls/hr Documented By: Admin: 09/28/22 13:39 Dose: 240 mls/hr Documented By: Infusion: 09/28/22 13:31 Dose: 240 mls/hr Documented By: Admin: 09/28/22 13:16 Dose: 240 mls/hr Documented By: MERCED Phytonadione 10 mg/ Dextrose 51 mls @ 102 mls/hr IV ONE STA Stop: 09/28/22 14:36 Last Infusion: 09/28/22 15:01 Dose: 0 mls/hr Documented By: Admin: 09/28/22 14:30 Dose: 102 mls/hr Documented By: MERCED Pantoprazole Sodium 80 mg/ (Dextrose) 120 mls @ 480 mls/hr IV ONE STA Stop: 09/28/22 15:10 Last Infusion: 09/28/22 16:36 Dose: 0 mls/hr Documented By: Admin: 09/28/22 16:11 Dose: 480 mls/hr Documented By: LAVON Insulin Human Regular 5 units/ (Syringe) 5 mls @ 0 mls/hr IV ONE STA Stop: 09/28/22 16:15 Last Admin: 09/28/22 16:31 Dose: 5 mls/hr Documented By: LAVON Co-signed By: RONNY Insulin Human Regular (Novolin-R Insulin Per Unit Charge) 10 units IV NOW STA Stop: 09/28/22 12:46 Last Admin: 09/28/22 13:16 Dose: 10 units Documented By: MERCED Co-signed By: DORA Lorazepam (Lorazepam 2 Mg/1 Ml Vial) 0.5 mg IV NOW STA Stop: 09/28/22 11:46 Last Admin: 09/28/22 11:52 Dose: 0.5 mg Documented By: MERCED Sodium Bicarbonate (Sodium Bicarb 8.4% Inj 50 Meq/50 Ml Syr) 50 meq IV NOW STA Stop: 09/28/22 15:34 Last Admin: 09/28/22 16:07 Dose: 50 meq Documented By: LAVON Imaging Data Radiologist's Impression: Chest X-Ray 09/28/22 11:14 XR chest 1V portable CLINICAL HISTORY: Sepsis COMPARISON STUDY: Chest radiograph January 01, 2022. FINDINGS: Postoperative findings within the thoracic spine are incidentally noted. Lung volumes are normal. Lungs are clear. There is no pneumothorax or pleural effusion. Cardiac size is stable. Mediastinal contours are normal. There is no evidence for pulmonary edema. IMPRESSION: No acute cardiopulmonary findings. ACT 112: Negative or not required by law. Electronically signed by: Brody Linares M.D. 09/28/2022 11:58 AM Abdomen/Pelvis CT 09/28/22 11:48 CT abd pelvis wo con CLINICAL HISTORY: sepsis ams TECHNIQUE: Helical axial images of the abdomen and pelvis were obtained. Automated dose lowering techniques and/or adjustment according to patient size were utilized for this exam. This exam was performed without intravenous contrast. CT DOSE: 1345.72 mGy.cm COMPARISON: None available at the time of this dictation. FINDINGS: Lower chest: For findings above the diaphragm, please see CT chest performed same day. Liver: Unremarkable. No focal lesions are seen. Gallbladder and biliary tree: No calcified gallstones. Normal caliber wall. No intra- or extrahepatic biliary ductal dilation. Pancreas: Unremarkable, no focal lesions. Spleen: Unremarkable. Adrenals: Unremarkable. Kidneys and ureters: Bilateral hydronephrosis is seen. No obstructive stones. Bladder: White catheter is seen. Cystic gas is likely secondary to instru mentation. Reproductive organs: Unremarkable. Bowel: The stomach is distended. There are numerous loops of dilated small bowel. Evaluation for a transition point is limited due to a possibility of mesenteric fat. Lymph nodes Retroperitoneal: Unremarkable. Pelvic: Unremarkable. Mesenteric: Unremarkable. Peritoneum: Small ascites is noted. Vessels: Atherosclerotic calcifications are seen. Infrarenal aortic aneurysm measures 76 mm in diameter. 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 Abdominal wall: Unremarkable. Bones: Degenerative changes in the visualized spine. IMPRESSION: 1. Multiple distended loops of small bowel are seen which may reflect a partial small bowel obstruction versus ileus. Further evaluation is limited due to paucity of mesenteric fat. 2. Large infrarenal aortic aneurysm. 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 ACT 112: Negative or not required by law. Electronically signed by: Gianni Franco M.D. 09/28/2022 1:[address] 09/28/22 11:48 CT chest diagnostic wo con CLINICAL HISTORY: 77 years-old Male with sepsis ams. Acutely altered mental status with sepsis TECHNIQUE: Multiaxial CT images of the chest were performed without contrast. A dose lowering technique was utilized adhering to the principles of ALARA. COMPARISON: CT abdomen and pelvis of same day, CT thoracic spine 09/14/2016. FINDINGS: Anasarca. Unremarkable thyroid. Moderate cardiomegaly with decreased attenuation of the cardiac blood pool suggestive of anemia. Extensive coronary artery calcifications. Atherosclerosis of the thoracic aorta without aneurysm. No lymphadenopathy identified. No pneumothorax, pleural effusion or overt pulmonary edema. Mild subsegmental bibasilar atelectasis. 2.3 cm focus of suggestive linear scarring within left lung apex with adjacent surgical suture material. Additional 8 mm nodular focus of the left lung apex on image 53 series 6. Mild patchy groundglass opacities are present at the right lower lobe. 5 mm fissural nodule right middle lobe suggestive of a reactive lymph node. Tracheobronchial secretions with scattered areas of mucus plugging, most pronounced in the right lower lobe bronchus. Right greater than left hydroureteronephrosis is partially imaged. Distended stomach. No acute fracture identified. Posterior to bilateral screw fusion of the thoracic spine. Chronic midthoracic compression deformities. IMPRESSION: 1. Tracheobronchial secretions with patchy groundglass right lower lobe opacities suggestive of aspiration pneumonitis. 2. Partially imaged bilateral hydronephrosis and aneurysmal dilation of the abdominal aorta. Please refer to the CT abdomen and pelvis study of same day. 3. Distended stomach. 4. Cardiomegaly with suggested anemia. ACT 112: Negative or not required by law. Electronically signed by: Hussein Whitt M.D. 09/28/2022 1:[address] 09/28/22 11:48 CT OF THE HEAD WITHOUT CONTRAST CLINICAL HISTORY: Altered mental status. Sepsis. COMPARISON STUDY: Head CT January 01, 2022. TECHNIQUE: Helical axial images of the head were obtained without IV contrast. Automated exposure control was utilized for the study. A dose lowering technique was utilized adhering to the principles of ALARA. FINDINGS: No acute intracranial hemorrhage, midline shift or mass effect is present. White matter hypodensities are unchanged and favor small vessel disease. The ventricular system is unremarkable. The basal cisterns are patent. No extra-axial collections are present. There are no findings to suggest acute dural sinus thrombosis or acute territorial infarct. No significant calvarial abnormalities are present. Visualized portions of the sinuses and mastoid air cells are clear. IMPRESSION: No acute intracranial findings. ACT 112: Negative or not required by law. Electronically signed by: Brody Linares M.D. 09/28/2022 12:57 PM Discharge Plan Visit Data Chief Complaint: Altered Mental Status Stated Complaint: AMS, HYPOTENSION ED Provider: Ramírez Calderon Discharge Problem: Sepsis, Hyperkalemia, Elevated INR, Anemia, Acute metabolic encephalopathy, Hyperammonemia, Rhabdomyolysis, Aspiration pneumonia, High anion gap metabolic acidosis, Acute renal failure, Hypothermia, Severe protein-calorie malnutrition, Acute urinary retention, Bilateral hydronephrosis, Medical non-compliance Patient Disposition: Admitted As Inpatient Discharge Instructions Interventions: ED Discharge Assessment Last Done: 09/28/22 15:54 Sepsis Qualifiers: Sepsis type: sepsis due to unspecified organism Sepsis acute organ dysfunction status: with acute organ dysfunction Severe sepsis acute organ dysfunction type: unspecified Severe sepsis shock status: unspecified Qualified Code(s): A41.9 - Sepsis, unspecified organism
--- NOTE | 2022-09-28 11:59 | XRay Report ---
XR chest 1V portable CLINICAL HISTORY: Sepsis COMPARISON STUDY: Chest radiograph January 01, 2022. FINDINGS: Postoperative findings within the thoracic spine are incidentally noted. Lung volumes are n ormal. Lungs are clear. There is no pneumothorax or pleural effusion. Cardiac size is stable. Mediast inal contours are normal. There is no evidence for pulmonary edema. IMPRESSION: No acute cardiopulmonary findings. ACT 112: Negative or not required by law. Electronically signed by: Brody Linares M.D. 09/28/2022 11:58 AM
[2022-09-28] MEDS ORDERED: SODIUM CHLORIDE 0.9% 250 ML IV PRN ×2 (12:19→12:22)
[2022-09-28 12:21] LABS: Hematocrit (blood only) 18.6 % (42.0-52.0); Hemoglobin 6.2 g/dl (14.0-18.0); Mean Corpuscular Hemoglobin 32.5 pg (25.0-34.0); Mean Corpuscular Hgb Conc 33.3 g/dL (32.0-36.0); Mean Corpuscular Volume 97.4 fL (80.0-100.0); Mean Platelet Volume 10.2 fL (9.4-12.4); Nucleated RBC # (auto) 0.05 K/uL (0-0.12); Nucleated RBC % (auto) 1.1 %; Platelet Count 73 K/uL (130-400); RDW Coefficient of Variation 13.3 % (11.5-14.5); RDW Standard Deviation 46.8 fL (36.4-46.3); Red Blood Count 1.91 M/uL (4.70-6.10); White Blood Count 4.43 K/ul (4.8-10.8)
[2022-09-28 12:26] LABS: Alanine Aminotransferase 19 U/L (7-52); Albumin Level 3.8 gm/dl (3.4-5.0); Alkaline Phosphatase 41 U/L (34-104); Anion Gap 30 (3-11); Aspartate Aminotransferase 61 U/L (13-39); Bilirubin Direct 0.1 mg/dl (0-0.2); Bilirubin,Total 0.4 mg/dl (0.2-1.0); Calcium 8.1 mg/dl (8.6-10.3); Carbon Dioxide 5 mmol/L (21-32); Chloride 103 mmol/L (98-107); Est GFR (African American) 3.7 ml/min; Est GFR (Non-African American) 3.2 ml/min; Glucose 76 mg/dl (70-99(Fasting)); Magnesium 3.1 mg/dl (1.7-2.4); Potassium 7.7 mmol/L (3.5-5.1); Sodium 138 mmol/L (136-145); Total Protein 6.2 gm/dl (6.0-8.3)
[2022-09-28 12:32] LABS: INR 1.7 (0.9-1.1); Prothrombin Time 18.5 Seconds (9.0-12.0)
[2022-09-28 12:34] LABS: Troponin I High Sensitivity 176.7 pg/ml (0-20)
[2022-09-28 12:44] LABS: Oxygen Saturation VBG < 60.0 %; PCO2 VBG 24 mmHg (38-50); PO2 VBG 40 mmHg; pH VBG < 7.00 (7.36-7.41)
[2022-09-28] MEDS ORDERED: NovoLIN-R INSULIN PER UNIT CHARGE IV STA (12:45)
[2022-09-28] MEDS ORDERED: DEXTROSE 50% 50 ML SYRINGE IV ONE (12:45)
[2022-09-28 12:52] LABS: Appearance Urine Clear (Clear); Bacteria Urine Automated Negative (Negative); Bilirubin Urine Negative (Negative); Blood Urine 3+ (Negative); Color Urine Yellow; Epithelial Cell Urine Auto 0-5 /lpf (0-5); Glucose Urine UA Negative (Negative); Ketones Urine Negative (Negative); Leukocyte Esterase Urine 2+ (Negative); Nitrite Urine Negative (Negative); Protein Urine Trace (Negative); RBC Urine Automated 0-4 /hpf (0-4); Specific Gravity Urine 1.011 (1.000-1.030); Urobilinogen Urine Negative (Negative); pH Urine 5.5 (4.5-7.5)
--- NOTE | 2022-09-28 12:59 | CT Scan Report ---
CT OF THE HEAD WITHOUT CONTRAST CLINICAL HISTORY: Altered mental status. Sepsis. COMPARISON STUDY: Head CT January 01, 2022. TECHNIQUE: Helical axial images of the head were obtained without IV contrast. Automated exposure con trol was utilized for the study. A dose lowering technique was utilized adhering to the principles o f ALARA. FINDINGS: No acute intracranial hemorrhage, midline shift or mass effect is present. White matter hyp odensities are unchanged and favor small vessel disease. The ventricular system is unremarkable. The basal cisterns are patent. No extra-axial collections are present. There are no findings to suggest a cute dural sinus thrombosis or acute territorial infarct. No significant calvarial abnormalities are present. Visualized portions of the sinuses and mastoid air cells are clear. IMPRESSION: No acute intracranial findings. ACT 112: Negative or not required by law. Electronically signed by: Brody Linares M.D. 09/28/2022 12:57 PM
[2022-09-28 13:00] LABS: Echinocytes 1+; Immature Granulocytes # (auto) 0.03 K/uL (0.01-0.20); Immature Granulocytes % (auto) 0.7 %; Lymphocytes # (auto) 0.11 K/uL (1.2-3.4); Lymphocytes % (auto) 2.5 %; Monocytes # (auto) 0.16 K/uL (0.11-0.59); Monocytes % (auto) 3.6 %; Neutrophils # (auto) 4.13 K/uL (1.40-6.50); Neutrophils % (auto) 93.2 %; Polychromasia 1+
--- NOTE | 2022-09-28 13:07 | CT Scan Report ---
CT abd pelvis wo con CLINICAL HISTORY: sepsis ams TECHNIQUE: Helical axial images of the abdomen and pelvis were obtained. Automated dose lowering tech niques and/or adjustment according to patient size were utilized for this exam. This exam was perfor med without intravenous contrast. CT DOSE: 1345.72 mGy.cm COMPARISON: None available at the time of this dictation. FINDINGS: Lower chest: For findings above the diaphragm, please see CT chest performed same day. Liver: Unremarkable. No focal lesions are seen. Gallbladder and biliary tree: No calcified gallstones. Normal caliber wall. No intra- or extrahepatic biliary ductal dilation. Pancreas: Unremarkable, no focal lesions. Spleen: Unremarkable. Adrenals: Unremarkable. Kidneys and ureters: Bilateral hydronephrosis is seen. No obstructive stones. Bladder: Gonzales catheter is seen. Cystic gas is likely secondary to instrumentation. Reproductive organs: Unremarkable. Bowel: The stomach is distended. There are numerous loops of dilated small bowel. Evaluation for a tr ansition point is limited due to a possibility of mesenteric fat. Lymph nodes Retroperitoneal: Unremarkable. Pelvic: Unremarkable. Mesenteric: Unremarkable. Peritoneum: Small ascites is noted. Vessels: Atherosclerotic calcifications are seen. Infrarenal aortic aneurysm measures 76 mm in diamet er. 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 Abdominal wall: Unremarkable. Bones: Degenerative changes in the visualized spine. IMPRESSION: 1. Multiple distended loops of small bowel are seen which may reflect a partial small bowel obstruct ion versus ileus. Further evaluation is limited due to paucity of mesenteric fat. 2. Large infrarenal aortic aneurysm. 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 ACT 112: Negative or not required by law. Electronically signed by: Gianni Franco M.D. 09/28/2022 1:06 PM
[2022-09-28] MEDS: CALCIUM GLUCONATE 1,000 MG/60 ML BAG IV SCH ×3 (13:16→14:29)
--- NOTE | 2022-09-28 13:32 | CT Scan Report ---
CT chest diagnostic wo con CLINICAL HISTORY: 77 years-old Male with sepsis ams. Acutely altered mental status with sepsis TECHNIQUE: Multiaxial CT images of the chest were performed without contrast. A dose lowering techni que was utilized adhering to the principles of ALARA. COMPARISON: CT abdomen and pelvis of same day, CT thoracic spine 09/14/2016. FINDINGS: Anasarca. Unremarkable thyroid. Moderate cardiomegaly with decreased attenuation of the car diac blood pool suggestive of anemia. Extensive coronary artery calcifications. Atherosclerosis of th e thoracic aorta without aneurysm. No lymphadenopathy identified. No pneumothorax, pleural effusion o r overt pulmonary edema. Mild subsegmental bibasilar atelectasis. 2.3 cm focus of suggestive linear s carring within left lung apex with adjacent surgical suture material. Additional 8 mm nodular focus o f the left lung apex on image 53 series 6. Mild patchy groundglass opacities are present at the right lower lobe. 5 mm fissural nodule right middle lobe suggestive of a reactive lymph node. Tracheobronc hial secretions with scattered areas of mucus plugging, most pronounced in the right lower lobe bronc hus. Right greater than left hydroureteronephrosis is partially imaged. Distended stomach. No acute fractu re identified. Posterior to bilateral screw fusion of the thoracic spine. Chronic midthoracic patricia willie deformities. IMPRESSION: 1. Tracheobronchial secretions with patchy groundglass right lower lobe opacities suggestive of aspir ation pneumonitis. 2. Partially imaged bilateral hydronephrosis and aneurysmal dilation of the abdominal aorta. Please r efer to the CT abdomen and pelvis study of same day. 3. Distended stomach. 4. Cardiomegaly with suggested anemia. ACT 112: Negative or not required by law. Electronically signed by: Hussein Whitt M.D. 09/28/2022 1:31 PM
[2022-09-28 13:45] LABS: Lipase 4392 U/L (11-82)
[2022-09-28 13:46] LABS: Adenovirus PCR Not Detected (NotDetected); Bordetella parapertussis PCR Not Detected (NotDetected); Bordetella pertussis PCR Not Detected (NotDetected); Chlamydia pneumoniae PCR Not Detected (NotDetected); Coronavirus 229E PCR Not Detected (NotDetected); Coronavirus CoV-2 (COVID19)PCR Not Detected (NotDetected); Coronavirus HKU1 PCR Not Detected (NotDetected); Coronavirus NL63 PCR Not Detected (NotDetected); Coronavirus OC43PCR Not Detected (NotDetected); Human Metapneumovirus PCR Not Detected (NotDetected); Influenza A PCR Not Detected (NotDetected); Influenza B PCR Not Detected (NotDetected); Mycoplasma pneumoniae PCR Not Detected (NotDetected); Parainfluenza Virus 1 PCR Not Detected (NotDetected); Parainfluenza Virus 2 PCR Not Detected (NotDetected); Parainfluenza Virus 3 PCR Not Detected (NotDetected); Parainfluenza Virus 4 PCR Not Detected (NotDetected); Respiratory Syncytial VirusPCR Not Detected (NotDetected); Rhinovirus/Enterovirus PCR Not Detected (NotDetected)
[2022-09-28 13:59] LABS: Blood Urea Nitrogen 256 mg/dl (6-23)
[2022-09-28] MEDS ORDERED: PHYTONADIONE 10 MG in DEXTROSE 5% 50 ML IV STA (14:07)
[2022-09-28 14:09] LABS: Creatine Kinase 1708 U/L (30-223)
[2022-09-28 14:11] LABS: BUN Creatinine Ratio 19.8 (10-20)
[2022-09-28] MEDS ORDERED: STAT IV STA (14:39)
[2022-09-28 14:44] LABS: Amphetamines+Metham, Urine Neg (Neg); Barbiturates, Urine Neg (Neg); Benzodiazepine, Urine Neg (Neg); Cocaine, Urine Neg (Neg); MDMA (Ecstacy), Urine Neg (Neg); Methadone, Urine Neg (Neg); Opiate, Urine Neg (Neg); Phencyclidine, Urine Neg (Neg)
[2022-09-28] MEDS ORDERED: SODIUM BICARBONATE 8.4% 150 MEQ in DEXTROSE 5% 1,000 ML IV SCH (14:45)
--- NOTE | 2022-09-28 14:45 | History & Physical Report ---
Date of Service September 28, 2022 Assessment & Plan (1) Goals of care, counseling/discussion: Plan: Patient without living will or power of civil litigation attorney. . Three daughters Radha Chamberlain ([phone]) and Gillian Shields ([phone]). Previously non- compliant with medications. General desire to avoid medical care. Discussed options with his daughters at bedside and over video call. They wish to seek active care with his BALDEMAR, potassium and anemia at the current time but aware that his condition if life threatening and do not wish to pursue more aggressive care with the intensive care unit. If patient is to continue to decline will discuss more regarding transition to comfort measures. His decline per family has been very rapid over the last week which gives good odds to him returning to his level of functioning a week ago if obstructive uropathy the only cause of his BALDEMAR although on exam his nutritional status appears to be much more prolonged and his prognosis remains guarded. Consult palliative care for ongoing goals of care discussions. All in agreement for do not resuscitate or intubated in the event of a cardiac/respiratory arrest. (2) BALDEMAR (acute kidney injury): Plan: Suspect mostly post renal with 3L urine retention in the ER. Will monitor Cr q6h. and I&Os q2h to match urine output with IV fluids. Add phosphorus level although patient unable to take phosphate binder orally at this stage (3) High anion gap metabolic acidosis: Plan: Suspect combination of uremia and lactate. Start Sodium bicarb 150meq + D5W at rate to match urine output (start 80ml/hr). Added acetaminophen/salicylate/alcohol levels (4) Hyperkalemia: Plan: Secondary to BALDEMAR. Calcium gluconate, Insulin dextrose given in the ER. Patient unable to take Lokelma orally at this time. Continue to monitor q6h and repeat insulin/dextrose as needed. (5) Sepsis: Plan: Source urine vs. PNA Lactate 5.5 -> 4.7 with IV NSS 2L bolus, further IV fluids based on urine output Follow up blood and urine cultures Warming blanket for hypothermia IV Zosyn for empiric coverage MRSA nose swab (6) Aspiration pneumonia: Plan: IV Zosyn as above (7) Anemia: Plan: Unclear etiology Ferritin, iron level, B12, folate, retic count Fecal occult blood - bright red blood noticed by RN Pantoprazole 80mg IV now then 40mg IV BID Transfuse 2 units packed red blood cells CBC q6h (8) Elevated INR: Plan: ?nutritional vs. liver damage vs. DIC Vitamin K 10 mg IV Repeat INR @ 6pm with DIC labs including PTT, fibrin degradation products and fibrinogen (9) Acute metabolic encephalopathy: Plan: Suspect uremia +/- ammonia +/- infection (10) Hyperammonemia: Plan: Unclear if effecting his mentation. Unable to take lactulose orally. Will defer enemas given hematochezia until Hgb stable. (11) Partial small bowel obstruction: Plan: Partial SBO vs. ileus NPO, if any vomiting will consider NG tube (12) Rhabdomyolysis: Plan: CK 1708 U/L, repeat with AM labs IV fluids for renal failure as above (13) Hypothermia: (14) Acute urinary retention: (15) Severe protein-calorie malnutrition: Plan: Consult dietary (16) Infrarenal abdominal aortic aneurysm (AAA) without rupture: Plan: Do not suspect is acute and not a good surgical candidate. Can be discussed following acute treatment. (17) Elevated lipase: Plan: No pancreatitis noted on CT. Suspect secondary to renal failure. Monitor with AM labs. IV fluids as above. Plan VTE Prophylaxis - deferred pending anemia workup and stabilization Diet - NPO Disposition - admit to PCU Admission and Anticipated Discharge Date Admission Date: September 28, 2022 History of Present Illness Chief Complaint: Altered mental status Primary Care Provider: Abraham Mackenzie MD Hamzah Shields is a 77 year old male who presents to the ER via EMS for altered mental status. Unable to get any history from the patient. His daughter Radha later arrived at bedside and discussed with his daughter Gillian over the phone. They report he has been having more trouble getting around and memory/dementia related issues such as not being able to bathe himself and being incontinent. He has not been eating much in the last week. No known vomiting or change in bowels. Per PCP note in August 19 he was having urinary incontinence for 2-3 weeks - initially suspected to be UTI and given cefdinir but with possible future plans to start tamsulosin if this didn't help. He has a history of non-compliance and stopped his anti-seizure medication in Spring 2021 leading to a severe seizure requiring intubation and aeromedical helicopter flight to [place] in December 2021. He has had a significant decline since then and continues to not take his anti-seizure medication. 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 Current Living Situation: Family Feels Safe at Home: Yes Safety Concerns: Feels Safe At This Time Assistive Devices: Oxygen - Continuous Review of Systems Review of Systems: Unobtainable due to cognitive status Physical Exam Constitutional: + acute distress (groaning), + ill appearing and + cachectic; + not well nourished Eyes: PERRL (minimally reactive, cloudy lens) Respiratory: + respiratory distress, + labored breathing, + uses accessory muscles, + tachypneic and + prolonged expiratory phase; no stridor Auscultation: + diminished lung sounds; breath sounds present, no crackles, no rales, no rhonchi and no wheezes Cardiovascular: Rate/Rhythm: regular rate and regular rhythm Heart Sounds: no murmur Gastrointestinal (Abdomen): Inspection/Auscultation: abdomen not distended Percussion/Palpation: + abdomen tender (groans to touch anywhere) and abdomen soft; no guarding and abdomen not rigid Skin: no rashes, warm and dry (no areas of cellulitis) Neurologic: awake and + confused; + does not move all extremities Psychiatric: Orientation: alert; + not oriented x 3 Results & Data Results & Data Vital Signs (Past 12 Hours) Vital Signs Temp Pulse Resp BP Pulse Ox O2 Del Method 09/28/22 12:20 53 L 23 100 09/28/22 12:15 60 21 100 09/28/22 12:15 135/68 09/28/22 12:10 70 18 99 06/14/23 12:00 55 L 20 100 09/28/22 12:00 123/55 L 09/28/22 11:50 46 L 18 99 09/28/22 11:45 60 17 99 09/28/22 11:45 122/63 09/28/22 11:40 55 L 18 96 09/28/22 11:39 44 L 20 100 09/28/22 11:39 118/71 09/28/22 11:30 48 L 17 92 09/28/22 11:27 53 L 18 100 09/28/22 11:27 132/58 L 09/28/22 11:20 47 L 19 98 09/28/22 11:12 87/57 L 09/28/22 11:12 51 L 17 09/28/22 11:10 48 L 17 09/28/22 11:04 48 L 20 09/28/22 12:15 63 09/28/22 11:51 57 L 100 Room Air 09/28/22 10:52 29.6 C L 39 L 12 87/56 L 97 Room Air Diagnostic Findings CT OF THE HEAD WITHOUT CONTRAST CLINICAL HISTORY: Altered mental status. Sepsis. COMPARISON STUDY: Head CT January 01, 2022. TECHNIQUE: Helical axial images of the head were obtained without IV contrast. Automated exposure control was utilized for the study. A dose lowering technique was utilized adhering to the principles of ALARA. FINDINGS: No acute intracranial hemorrhage, midline shift or mass effect is present. White matter hypodensities are unchanged and favor small vessel disease. The ventricular system is unremarkable. The basal cisterns are patent. No extra-axial collections are present. There are no findings to suggest acute dural sinus thrombosis or acute territorial infarct. No significant calvarial abnormalities are present. Visualized portions of the sinuses and mastoid air cells are clear. IMPRESSION: No acute intracranial findings. XR chest 1V portable CLINICAL HISTORY: Sepsis COMPARISON STUDY: Chest radiograph January 01, 2022. FINDINGS: Postoperative findings within the thoracic spine are incidentally noted. Lung volumes are normal. Lungs are clear. There is no pneumothorax or pleural effusion. Cardiac size is stable. Mediastinal contours are normal. There is no evidence for pulmonary edema. IMPRESSION: No acute cardiopulmonary findings. CT chest diagnostic wo con CLINICAL HISTORY: 77 years-old Male with sepsis ams. Acutely altered mental status with sepsis TECHNIQUE: Multiaxial CT images of the chest were performed without contrast. A dose lowering technique was utilized adhering to the principles of ALARA. COMPARISON: CT abdomen and pelvis of same day, CT thoracic spine 09/14/2016. FINDINGS: Anasarca. Unremarkable thyroid. Moderate cardiomegaly with decreased attenuation of the cardiac blood pool suggestive of anemia. Extensive coronary artery calcifications. Atherosclerosis of the thoracic aorta without aneurysm. No lymphadenopathy identified. No pneumothorax, pleural effusion or overt pulmonary edema. Mild subsegmental bibasilar atelectasis. 2.3 cm focus of suggestive linear scarring within left lung apex with adjacent surgical suture material. Additional 8 mm nodular focus of the left lung apex on image 53 series 6. Mild patchy groundglass opacities are present at the right lower lobe. 5 mm fissural nodule right middle lobe suggestive of a reactive lymph node. Tracheobronchial secretions with scattered areas of mucus plugging, most pronounced in the right lower lobe bronchus. Right greater than left hydroureteronephrosis is partially imaged. Distended stomach. No acute fracture identified. Posterior to bilateral screw fusion of the thoracic spine. Chronic midthoracic compression deformities. IMPRESSION: 1. Tracheobronchial secretions with patchy groundglass right lower lobe opacities suggestive of aspiration pneumonitis. 2. Partially imaged bilateral hydronephrosis and aneurysmal dilation of the abdominal aorta. Please refer to the CT abdomen and pelvis study of same day. 3. Distended stomach. 4. Cardiomegaly with suggested anemia. CT abd pelvis wo con CLINICAL HISTORY: sepsis ams TECHNIQUE: Helical axial images of the abdomen and pelvis were obtained. Automated dose lowering techniques and/or adjustment according to patient size were utilized for this exam. This exam was performed without intravenous contrast. CT DOSE: 1345.72 mGy.cm COMPARISON: None available at the time of this dictation. FINDINGS: Lower chest: For findings above the diaphragm, please see CT chest performed same day. Liver: Unremarkable. No focal lesions are seen. Gallbladder and biliary tree: No calcified gallstones. Normal caliber wall. No intra- or extrahepatic biliary ductal dilation. Pancreas: Unremarkable, no focal lesions. Spleen: Unremarkable. Adrenals: Unremarkable. Kidneys and ureters: Bilateral hydronephrosis is seen. No obstructive stones. Bladder: Gonzales catheter is seen. Cystic gas is likely secondary to instrumentation. Reproductive organs: Unremarkable. Bowel: The stomach is distended. There are numerous loops of dilated small bowel. Evaluation for a transition point is limited due to a possibility of mesenteric fat. Lymph nodes Retroperitoneal: Unremarkable. Pelvic: Unremarkable. Mesenteric: Unremarkable. Peritoneum: Small ascites is noted. Vessels: Atherosclerotic calcifications are seen. Infrarenal aortic aneurysm measures 76 mm in diameter. 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 Abdominal wall: Unremarkable. Bones: Degenerative changes in the visualized spine. IMPRESSION: 1. Multiple distended loops of small bowel are seen which may reflect a partial small bowel obstruction versus ileus. Further evaluation is limited due to paucity of mesenteric fat. 2. Large infrarenal aortic aneurysm. 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 Medications Administered ER Medications Given: NSS 2L bolus Cefepime 2g IV Lorazepam 0.5mg IV Calcium gluconate 1000mg IV Insulin 10 units IV Dextrose 50% 100ml IV ECG Rate (beats per minute): 46 Rhythm: normal sinus Findings: + other (non-specific intra-ventricular conduction block) and + prolonged QT Comparison ECG Date: from (January 02, 2022) Code Status & VTE Plan Code Status DNR/DNI VTE Prophylaxis Plan VTE Prophylaxis will be ordered: No Critical Care Time Critical Care Time: Yes Total Critical Care Time: 40 PG Care Time/CCT Total # of Minutes Spent Total Time Spent with Patient: Total time spent is greater than 50% in coordination of care (as documented) at patient's floor/unit and/or counseling patient: Critical Care Time: Yes Total Critical Care Time: 40 Coding Level of Care Code 30311 INT INP/OBS CARE 3/75MIN Diagnoses Goals of care, counseling/discussion Z71.89 BALDEMAR (acute kidney injury) N17.9 High anion gap metabolic acidosis E87.29 Hyperkalemia E87.5 Sepsis A41.9; R65.20 Sepsis acute organ dysfunction status: with acute organ dysfunction Sepsis type: sepsis due to unspecified organism Severe sepsis acute organ dysfunction type: unspecified Severe sepsis shock status: unspecified Aspiration pneumonia J69.0 Anemia D64.9 Elevated INR R79.1 Acute metabolic encephalopathy G93.41 Hyperammonemia E72.20 Partial small bowel obstruction K56.600 Rhabdomyolysis M62.82 Hypothermia T68.XXXA Acute urinary retention R33.8 Severe protein-calorie malnutrition E43 Infrarenal abdominal aortic aneurysm (AAA) without rupture I71.43 Elevated lipase R74.8 Additional Codes Critical Care Time - Critical Care Time: Yes ([id number]) (5) Sepsis Sepsis acute organ dysfunction status: with acute organ dysfunction Sepsis type: sepsis due to unspecified organism Severe sepsis acute organ dysfunction type: unspecified Severe sepsis shock status: unspecified Qualified Code(s): A41.9 - Sepsis, unspecified organism; R65.20 - Severe sepsis without septic shock
[2022-09-28] MEDS ORDERED: PANTOprazole 80 MG in DEXTROSE 5% 100 ML IV STA (14:56)
--- NOTE | 2022-09-28 15:01 | Electrocardiogram Report ---
Test Reason : Blood Pressure : / mmHG Vent. Rate : 046 BPM Atrial Rate : 046 BPM P-R Int : 344 ms QRS Dur : 178 ms QT Int : 590 ms P-R-T Axes : 072 -55 077 degrees QTc Int : 516 ms Sinus bradycardia with 1st degree A-V block Indeterminate axis Non-specific intra-ventricular conduction block Abnormal ECG When compared with ECG of 02-JAN-2022 00:10, Vent. rate has decreased BY 57 BPM QRS duration is longer Confirmed by Howard Romero ([id number]) on 09/28/2022 3:00:53 PM Referred By: REFERRED SELF Confirmed By:Kenrick oRmero
[2022-09-28 15:19] LABS: Acetaminophen < 3 ug/ml (10-30); Salicylate < 3.0 mg/dl (3.0-30)
[2022-09-28] MEDS ORDERED: SODIUM BICARB 8.4% INJ 50 MEQ/50 ML SYR IV STA (15:33)
[2022-09-28 15:37] LABS: Hematocrit (blood only) 16.1 % (42.0-52.0); Hemoglobin 5.4 g/dl (14.0-18.0); Mean Corpuscular Hemoglobin 31.8 pg (25.0-34.0); Mean Corpuscular Hgb Conc 33.5 g/dL (32.0-36.0); Mean Corpuscular Volume 94.7 fL (80.0-100.0); Mean Platelet Volume 11.3 fL (9.4-12.4); Nucleated RBC # (auto) 0.06 K/uL (0-0.12); Nucleated RBC % (auto) 1.5 %; Platelet Count 52 K/uL (130-400); RDW Coefficient of Variation 13.3 % (11.5-14.5); Reticulocyte % 2.3 % (0.5-2.0); Reticulocytes # 0.04 10^6/uL (0.02-0.10)
[2022-09-28 15:38] LABS: Anion Gap 26 (3-11); Blood Urea Nitrogen 254 mg/dl (6-23); Calcium 8.2 mg/dl (8.6-10.3); Carbon Dioxide 4 mmol/L (21-32); Chloride 105 mmol/L (98-107); Est GFR (African American) 4.1 ml/min; Est GFR (Non-African American) 3.5 ml/min; Ferritin 377.1 ng/ml (8-388); Glucose 280 mg/dl (70-99(Fasting)); Iron 99 mcg/dl (35-175); Phosphorus 16.7 mg/dl (2.5-4.9); Potassium 6.9 mmol/L (3.5-5.1); Sodium 135 mmol/L (136-145); Total Iron Binding Cap Calc 232 mcg/dl (250-450); Transferrin (FE) Percent Satur 43 % (20-50); Troponin I High Sensitivity 195.8 pg/ml (0-20); Unsaturated Iron Binding Cap 133 mcg/dl (155-355)
[2022-09-28] MEDS ORDERED: PIPERACILLIN/TAZOBACTAM 4.5 GM in DEXTROSE 5% 100 ML IV SCH (15:53)
[2022-09-28] MEDS ORDERED: LACTULOSE 200GM/700ML WTR ENEMA PR SCH (16:00)
[2022-09-28] MEDS ORDERED: INSULIN HUMAN REGULAR PER IV STA (16:06)
[2022-09-28] MEDS ORDERED: INSULIN HUMAN REGULAR PER UNIT 5 UNITS in SYRINGE 4.95 ML IV STA (16:14)
[2022-09-28] MEDS ORDERED: PANTOprazole 40 MG in SYRINGE 0 ML IV SCH (21:00)
[2022-09-28 21:09] LABS: Hematocrit (blood only) 21.9 % (42.0-52.0); Hemoglobin 7.6 g/dl (14.0-18.0); Mean Corpuscular Hemoglobin 30.6 pg (25.0-34.0); Mean Corpuscular Hgb Conc 34.7 g/dL (32.0-36.0); Mean Corpuscular Volume 88.3 fL (80.0-100.0); Mean Platelet Volume 11.3 fL (9.4-12.4); Nucleated RBC # (auto) 0.06 K/uL (0-0.12); Nucleated RBC % (auto) 3.9 %; Platelet Count 49 K/uL (130-400); RDW Coefficient of Variation 13.4 % (11.5-14.5); RDW Standard Deviation 43.3 fL (36.4-46.3); Red Blood Count 2.48 M/uL (4.70-6.10); White Blood Count 1.54 K/ul (4.8-10.8)
[2022-09-28 21:11] LABS: BUN Creatinine Ratio 21.5 (10-20); Calcium 7.1 mg/dl (8.6-10.3); Creatinine Clr Calc Pharmacy 3.5 ml/min; Est GFR (African American) 4.1 ml/min; Est GFR (Non-African American) 3.6 ml/min; Potassium 6.2 mmol/L (3.5-5.1); Troponin I High Sensitivity 263.1 pg/ml (0-20)
[2022-09-28 21:19] LABS: INR 1.7 (0.9-1.1); Partial Thromboplastin Ratio 1.5; Prothrombin Time 18.2 Seconds (9.0-12.0)
[2022-09-28 21:23] LABS: Partial Thromboplastin Time 41.9 Seconds (21.0-31.0)
[2022-09-28 21:24] LABS: Fibrinogen 67 mg/dl (184-400)
--- NOTE | 2022-09-28 22:38 | Communication Note ---
Date of Service: September 28, 2022 Patient reviewed and examined on PCU. Less groaning. Still making incomprehensible sounds. Does not appear in pain. Urine output improved to 40ml/hr for the last 2 hours (initially 8ml/hr after white catheter insertion and initial 3L urine retention). Discussed with Radha (daughter) over the phone. Labs concerning for DIC with thrombocytopenia, decreased fibrinogen and elevated fibrin degradation products. Bright red blood in stool. Possibly contributing towards his renal failure. Suspect sepsis although no definitive source ?UTI ?PNA. BALDEMAR concerning not just obstructive uropathy with lack of improvement of Cr/BUN despite white catheter insertion with highly elevated BUN at 256 mg/dL (not resulted at the time of our previous discussion). We discussed need for dialysis in this circumstance since cause of BALDEMAR not rapidly reversible and confirmed with her he would not want dialysis. She reports her sisters are on the same page at this time and given BALDEMAR not rapidly reversible wish to move him to comfort care. On discussion with all three family members earlier they all agree he would not want aggressive care and goal of comfort appears to be in keeping with his wishes at this time. Will discontinue further lab draws and transfer to med/surg. PRN orders for pain, nausea, agitation.
[2022-09-28] MEDS ORDERED: LORazepam 2 MG/1 ML VIAL IV PRN (22:50)
[2022-09-28] MEDS ORDERED: ONDANSETRON 4 MG OD TAB SL PRN (22:50)
[2022-09-28] MEDS ORDERED: MoRPHine SULFATE 2 MG/ML CARP IV PRN (22:50)
[2022-09-28] MEDS ORDERED: HYOSCYAMINE SULFATE 0.125 MG TAB SL PRN (22:50)
[2022-09-28] MEDS ORDERED: ACETAMINOPHEN 325 MG TAB PO PRN (22:50)
[2022-09-28] MEDS ORDERED: ACETAMINOPHEN 650 MG SUPP PR PRN (22:50)
[2022-09-28] MEDS ORDERED: MoRPHine SULFATE 10 MG/0.5 ML UDP PO PRN (22:50)
[2022-09-28] MEDS ORDERED: ONDANSETRON INJ 2 MG/ML 2 ML VIAL IV PRN (22:50)
[2022-09-28] MEDS ORDERED: GLYCOPYRROLATE 0.2 MG/ML VIAL IV PRN (22:50)
[2022-09-28] MEDS ORDERED: LORazepam 0.5 MG TAB PO PRN (22:50)
--- NOTE | 2022-09-29 02:52 | Death Pronouncement Note ---
Date of Service September 29, 2022 Pronouncement Note Admission Date Admission Date: September 28, 2022 Date and Time of Date of : 09/29/22 Time of : 02:42 PCOD Preliminary cause of : Aspiration pneumonia Contributing Factors (1) Goals of care, counseling/discussion: (2) BALDEMAR (acute kidney injury): (3) High anion gap metabolic acidosis: (4) Hyperkalemia: (5) Sepsis: (6) Aspiration pneumonia: (7) Anemia: (8) Elevated INR: (9) Acute metabolic encephalopathy: (10) Hyperammonemia: (11) Partial small bowel obstruction: (12) Rhabdomyolysis: (13) Hypothermia: (14) Acute urinary retention: (15) Severe protein-calorie malnutrition: (16) Infrarenal abdominal aortic aneurysm (AAA) without rupture: (17) Elevated lipase: Additional Data Confirmation of : no pulse, no respirations, no heart sounds and pupils fixed and dilated Family: attempt made (called daughter x2 with no answer) Attending physician: Kannan Lazo MD
--- NOTE | 2022-09-29 07:15 | XRay Report ---
XR chest 1V portable CLINICAL HISTORY: Tachypnea. COMPARISON STUDY: Chest radiograph and chest CT performed earlier today. FINDINGS: Postoperative findings within the thoracic spine are incidentally noted. No pneumothorax or pleural effusion is present. There is no evidence for pulmonary edema. Patchy right mid and lower yayo ng airspace opacities have progressed. Cardiomediastinal silhouette is stable. IMPRESSION: Progression of patchy right mid and lower lung airspace opacities which could reflect pn eumonia or aspiration pneumonitis. ACT 112: Negative or not required by law. Electronically signed by: Brody Linares M.D. 09/29/2022 7:14 AM
--- NOTE | 2022-09-29 13:57 | Discharge Summary ---
Date of Service September 29, 2022 Admission HPI Per Admitting Provider Hamzah Shields is a 77 year old male who presents to the ER via EMS for altered mental status. Unable to get any history from the patient. His daughter Radha later arrived at bedside and discussed with his daughter Gillian over the phone. They report he has been having more trouble getting around and memory/dementia related issues such as not being able to bathe himself and being incontinent. He has not been eating much in the last week. No known vomiting or change in bowels. Per PCP note in August 19 he was having urinary incontinence for 2-3 weeks - initially suspected to be UTI and given cefdinir but with possible future plans to start tamsulosin if this didn't help. He has a history of non-compliance and stopped his anti-seizure medication in Spring 2021 leading to a severe seizure requiring intubation and aeromedical helicopter flight to [place] in December 2021. He has had a significant decline since then and continues to not take his anti-seizure medication. Principal Diagnosis Disseminated intravascular coagulation Acute kidney Failure Urinary retention Discharge Exam Patient Did not perform examination of day of discharge Discharge Data Allergies Allergy/AdvReac Type Severity Reaction Status Date / Time No Known Allergies Allergy Unverified 04/27/18 13:48 Consultations 09/28/22 13:27 ED Decision to Admit Stat 09/28/22 15:53 Consult Palliative Care Routine Ordered Studies 09/28/22 11:48 CT abd pelvis wo con Stat CT chest diagnostic wo con Stat CT head/brain wo con Stat Hospital Course (1) Goals of care, counseling/discussion: Hamzah Shields is a 77 year old male presents to the ER with altered mental status. Multiple lab abnormalities on admission with severe hyperkalemia, BALDEMAR, high anion gap acidosis, elevated INR and anemia. Initial emergent management performed and given white catheter inserted with 3L of retained urine hope was if this was the patients main etiology he would start to rapidly reverse. However his Cr/BUN did not make significant improvement with white catheter insertion and intravenous fluids. His mentation did not significantly change with improvement in acidosis. Repeat labs were concerning for disseminated intravascular coagulation and in setting of no rapidly reversible etiology and patient previous wishes not for aggressive care he was made for comfort care and treated symptomatically. He at 2:42am the day after admission. (2) BALDEMAR (acute kidney injury): (3) High anion gap metabolic acidosis: (4) Hyperkalemia: (5) Sepsis: (6) Aspiration pneumonia: (7) Anemia: (8) Elevated INR: (9) Acute metabolic encephalopathy: (10) Hyperammonemia: (11) Partial small bowel obstruction: (12) Rhabdomyolysis: (13) Hypothermia: (14) Acute urinary retention: (15) Severe protein-calorie malnutrition: (16) Infrarenal abdominal aortic aneurysm (AAA) without rupture: (17) Elevated lipase: Total Time Total Time Spent Total Time Spent (In Minutes): 20 Discharge Plan Discharge Items Patient Disposition: Other Date/Time: 09/29/22 02:42 Coding Level of Care Code None Diagnoses Goals of care, counseling/discussion Z71.89 BALDEMAR (acute kidney injury) N17.9 High anion gap metabolic acidosis E87.29 Hyperkalemia E87.5 Sepsis A41.9; R65.20 Sepsis acute organ dysfunction status: with acute organ dysfunction Sepsis type: sepsis due to unspecified organism Severe sepsis acute organ dysfunction type: unspecified Severe sepsis shock status: unspecified Aspiration pneumonia J69.0 Anemia D64.9 Elevated INR R79.1 Acute metabolic encephalopathy G93.41 Hyperammonemia E72.20 Partial small bowel obstruction K56.600 Rhabdomyolysis M62.82 Hypothermia T68.XXXA Acute urinary retention R33.8 Severe protein-calorie malnutrition E43 Infrarenal abdominal aortic aneurysm (AAA) without rupture I71.43 Elevated lipase R74.8
== END 2022-09-29 05:01 | disposition expired | DRG 682 ==
LOC: ED 10:51 → 2E 14:39 → 3E 09-29 00:54